=== PATIENT | female | born 1935 | race Caucasian/White ===

== ENCOUNTER 2019-10-07 14:16 | Emergency (ER) | payer MEDICARE, SELFPAY ==
[2019-10-07 14:17] VITALS: BP 149/72; PULSE 91; RESP 20; TEMP 36.6; O2SAT 98; BMI 27.7
--- NOTE | 2019-10-07 14:20 | ED.RN ---
WHEN TRIAGING PT. THIS RN ASKS IF SHE HAS THOUGHTS OF HARMING HERSELF. PT BURST INTO TEARS AND STATES YES.. TODAY I WANT TO KILL MYSELF. PT AGREES HAS HAD THESE THOUGHTS FOR AWHILE
--- NOTE | 2019-10-07 14:38 | ED.VIS.GEN ---
History of Present Illness Chief Complaint: Back Informant: Patient, Significant Other Onset: Weeks Context: Sudden Onset Timing: Continuous Quality: Pain Location: Low back right hip Current Severity: Severe Maximum Severity: Severe Worsened by: Any type of movement Relieved by: Nothing Associated Symptoms: The patient secondary to opiate analgesia Narrative: Patient is an 84-year-old woman with history of osteopenia who presents because of severe back pain. She had an outpatient MRI performed October 04 at the [facility]. Findings revealed multiple subacute benign compression fractures of T12-L3 and a remote benign compression fracture of T11. There is also severe L3-4 and L4-5 and moderate L2-L3 canal stenosis. There is also multilevel bony foraminal narrowing. Patient denies bowel or bladder dysfunction. Patient denies saddle paresthesia or anesthesia. Patient denies radicular pain. There is no recent fall. She denies fever or chills. She is not on an anticoagulant. Prior similar symptoms: Yes Recent Illness/Hospitalization: No - Past Medical History (1) Asthma Status: Chronic (2) GERD (gastroesophageal reflux disease) Status: Chronic Past Medical History - Allergies and Home Meds Allergies/Adverse Reactions: Allergies fentanyl Allergy (Verified 03/07/17 23:04) Shortness of breath Primary Care Physician: Blanco Fishman MD [Primary Care Provider] - Prior records reviewed: Yes Surgical History: noncontributory Lives: Spouse/ Significant Other Smoking Status: Never smoker Alcohol: None Drugs: None Review of Systems General: Denies: Chills, Fever, Malaise, Subjective, Sweats Cardiovascular: Denies: Chest pain, Palpitations Respiratory: Denies: Dyspnea, Cough, Dyspnea on exertion Gastrointestinal: Denies: Abdominal pain, Nausea, Vomiting, Diarrhea, Melena, Hematochezia Genitourinary: Denies: Dysuria, Hematuria, Frequency Musculoskeletal: Reports: Back pain. Denies: Myalgias, Arthralgias, Neck pain, Swelling, Extremity Pain, -, - Skin: Denies: Rash, Wounds Neurological: Denies: Headache, Weakness, Parasthesia, Numbness, -, - Endocrine: Denies: Polyuria, Polydipsia Hematologic: Denies: Easy bruising, Easy bleeding Allergy: Denies: Uticaria Physical Exam Vital Signs/Narrative: Vital Signs Temp Pulse Resp BP Pulse Ox 10/07/19 14:17 98 F 91 20 H 149/72 H 98 Inital Vital Signs reviewed: Yes General: Well nourished, Well developed, Obese, Acute Distress Head: Normocephalic, Atraumatic Eyes: Perrl, EOMI. Negative for: Pale conjunctiva, Scleral icterus ENT: Moist mucous membranes, No rhinorrhea Neck: Supple, Nontender, No lymphadenopathy, No JVD Cardiovascular: Regular rate, Regular rhythm, No murmurs, Normal S1, Normal S2 Respiratory: No distress, CTA bilaterally, Chest nontender Abdomen: Soft, Nontender, Nondistended, Normal bowel sounds, No masses. Negative for: Hepatomegaly, Splenomegaly, Mass, Pulsatile mass Rectal: Deferred Back: Normal Inspection. Negative for: Nontender, CVA tenderness Extremities: Nontender, No edema Skin: Normal color, No rash, No Trauma. Negative for: Cyanosis, Diaphoresis, Jaundice Neurological: Alert, Oriented x3, Cranial nerves II-XII grossly intact, Normal Strength, Normal Sensation Psychological: Normal affect Diagnostic/Tx/Re-eval Laboratory Results 10/07/19 10/07/19 15:50 15:50 WBC 9.0 RBC 4.35 Hgb 14.5 Hct 44.2 MCV 101.6 H MCH 33.3 H MCHC 32.8 RDW Std Deviation 50.6 H RDW Coeff of Mehrdad 13.4 Plt Count 244 MPV 9.3 Immature Gran % (Auto) 0.600 Neut % (Auto) 83.6 H Lymph % (Auto) 10.5 L Lyon % (Auto) 4.8 Eos % (Auto) 0.3 Baso % (Auto) 0.2 Absolute Neuts (auto) 7.6 Absolute Lymphs (auto) 0.95 Nucleated RBC % 0 Sodium 138 Potassium 3.7 Chloride 106 Carbon Dioxide 26.0 Anion Gap 6 BUN 11 Creatinine 0.70 Estim Creat Clear Calc 31.15 Est GFR (MDRD) Af Amer 104 Est GFR (MDRD) Non-Af 86 BUN/Creatinine Ratio 15.8 Glucose 115 H Calcium 9.7 CBC and basic metabolic panel unremarkable. - Medical Decision Making Since patient had MRI performed 3 days ago I would explain her back pain she was medicated with 0.5 mg of Dilaudid IV push. Because she reports nausea with opiates she received 4 mg of Zofran IV push. She has no acute neurologic findings. And was ordered a second dose of Dilaudid since she is in significant pain. If her pain is not controlled with second dose of Dilaudid will call hospitalist for admission for pain management due to multilevel compression fracture involving T12-L3 Patient was able to ambulate from her room to the restroom. Reviewing her medication reveals that she is on OxyContin every 4 hours for pain. Will discharge to home. ED Disposition - Plan for ED Patient: Diagnosis: Wedge compression fracture of t11-T12 vertebra, sequela, Compression fracture of L1 vertebra, Closed compression fracture of L2 vertebra, Compression fraction L3, Spinal stenosis of lumbar region at multiple levels Instructions: FRACTURE, Vertebral Compression Referrals: Blanco Fishman MD [Primary Care Provider] - 3-5 Days if not improving
[2019-10-07] MEDS: HYDROmorphone 1 MG/ML Syringe 0.5 MG IV (15:32)
[2019-10-07] MEDS: Ondansetron 4 MG/2 ML Vial IV (15:32)
[2019-10-07 15:58] LABS: Absolute Lymphocyte Count 0.95 X10^3/uL (0.83-4.51); Absolute Neutrophil Count 7.6 X10^3/uL (2.0-7.7); Basophil# 0.02 X10^3/uL; Basophil% 0.2 % (0-1); Eosinophil# 0.03 X10^3/uL; Eosinophils% 0.3 % (0-5); Hematocrit 44.2 % (37-47); Hemoglobin 14.5 g/dL (12.0-15.0); Lymphocyte # 0.95 X10^3/ul (4.0); Lymphocyte % 10.5 % (19-41); Mean Corp Hgb Conc 32.8 g/dL (32-36); Mean Corpuscular Hgb 33.3 pg (27.0-32.0); Mean Corpuscular Volume 101.6 fL (81-99); Mean Platelet Vol. 9.3 fl (6.2-12.0); Monocyte# 0.43 X10^3/uL; Monocyte% 4.8 % (0-10); NRBC Flagged by Analyzer 0 % (0-5); Neutrophil # 7.55 X10^3/uL (2.7-7.7); Neutrophil % 83.6 % (47-70); Platelet Count 244 K/mm3 (150-450); RBC Distribution Width CV 13.4 % (11.6-14.6); RBC Distribution Width SD 50.6 fl (35.1-43.9); Red Blood Count 4.35 M/mm3 (4.2-5.4)
--- NOTE | 2019-10-07 16:10 | CM.ED ---
Social Work Consult: Mental Health Informant: Meghan RN Spoke with Dr. Fields. Dr. Fields already spoke to patient and is stating that the patient is not suicidal and to believe that patient is wanting the pain to stop, but not to end life. Met with patient in room. Introduced self as well as social worker psychiatric role. Patient spouse present. Patient agreeable to patient spouse staying during conversation. Before this social worker psychiatric was able to broach any topics patient stating I am not suicidal. This social worker psychiatric acknowledging with patient that patient state yes when the nursing staff asked patient if patient was having any thoughts of harming self. Patient stating to be in lots of pain. Patient denies having any thoughts of wanting to end patient life or any plans of hurting self. Patient denies any history of suicidal thoughts or plans. Patient is laying in bed and grimacing often, and stating to currently be in pain. Patient with a pleasant affect and even smiled at this social worker psychiatric once. Patient spouse confirming to have no concerns with patient hurting self. Patient stating I have been in pain for a long time. Patient denies any mental health history or concerns. Active listening and support provided. Collaborating with Dr. Fields. 1:1 sitter precautions discharged at this time. Eduardo HOWARD, NICOLE
[2019-10-07 16:14] LABS: Anion Gap 6 (5-15); BUN 11 mg/dL (7-18); BUN/Creat Ratio 15.8 RATIO (10-20); Calcium,Total 9.7 mg/dL (8.5-10.1); Chloride 106 mmol/L (98-107); EST Glomerular Filtration Rate 86 mL/min (>60); Est Glom Filt Rate - Afr Amer 104 mL/min (>60); Estimated Creatinine Clearance 31.15 ml/min; Glucose 115 mg/dL (74-106); Potassium 3.7 mmol/L (3.5-5.1); Sodium Level 138 mmol/L (136-145)
[2019-10-07] MEDS: HYDROmorphone 0.5 MG/0.5 ML SYRINGE IV (16:57)
[2019-10-07 18:16] VITALS: BP 146/86; PULSE 79; RESP 16; TEMP 36.8; O2SAT 97
== END 2019-10-07 19:00 | disposition home or self-care (01) ==
LOC: ED 14:43
PROVIDERS: Emergency Provider Emergency Medicine; Family Provider Family Medicine; PCP Family Medicine
DX: M48.55XA Collapsed vertebra, not elsewhere classified, thoracolumbar region, initial encounter for fracture (principal); M48.061 Spinal stenosis, lumbar region without neurogenic claudication; M85.80 Other specified disorders of bone density and structure, unspecified site; J45.909 Unspecified asthma, uncomplicated; K21.9 Gastro-esophageal reflux disease without esophagitis
CPT/HCPCS: 80048; 85025; 96374; 96375; 96376; 99285; J7040; A4216; J2405

== ENCOUNTER 2019-10-09 16:49 | Emergency (ER) | payer MEDICARE, SELFPAY ==
[2019-10-09 16:49] VITALS: BP 146/82; PULSE 90; RESP 16; TEMP 36.6; O2SAT 95; BMI 28.8
--- NOTE | 2019-10-09 17:08 | ED.VIS.GEN ---
History of Present Illness Chief Complaint: Constipation Informant: Patient, Family Onset: Days Current Severity: Mild Maximum Severity: Moderate Narrative: Patient presents secondary to concerns for constipation. She was found to have subacute compression fractures of T12-L3 on an MRI scan performed October 04. She was started on hydrocodone on October 03. Patient tells me her last bowel movement was approximately 10 days ago. She is passing gas. She has tried stool softeners, milk of magnesia, enema, and magnesium citrate at home without improvement. Her PCP told her that it is to come to the emergency room. Prior abdominal surgeries include appendectomy and cholecystectomy. - Past Medical History (1) Hx of appendectomy Status: Chronic (2) Hx of cholecystectomy Status: Chronic (3) Compression fracture Status: Chronic (4) Asthma Status: Chronic (5) GERD (gastroesophageal reflux disease) Status: Chronic Past Medical History - Allergies and Home Meds Allergies/Adverse Reactions: Allergies fentanyl Allergy (Verified 10/09/19 16:51) Shortness of breath Primary Care Physician: Blanco Fishman MD [Primary Care Provider] - Prior records reviewed: Yes Surgical History: noncontributory Lives: Spouse/ Significant Other Smoking Status: Never smoker Review of Systems General: Denies: Chills, Fever Eyes: Denies: Visual changes - bilaterally ENT: Denies: Bilateral ear pain Cardiovascular: Denies: Chest pain Respiratory: Denies: Dyspnea, Cough Gastrointestinal: Reports: Abdominal pain, Constipation. Denies: Nausea, Vomiting, Diarrhea Genitourinary: Denies: Dysuria Skin: Denies: Rash Allergy: Denies: Uticaria Physical Exam Vital Signs/Narrative: Vital Signs Temp Pulse Resp BP Pulse Ox 10/09/19 16:49 98 F 90 16 146/82 H 95 Inital Vital Signs reviewed: Yes General: Well nourished, Well developed Head: Normocephalic ENT: Moist mucous membranes Neck: Supple Cardiovascular: Regular rate, Regular rhythm Respiratory: No distress, CTA bilaterally Abdomen: Soft, Nontender, Normal bowel sounds Extremities: Nontender Skin: Normal color Neurological: Alert, Oriented x3 Psychological: Normal affect Diagnostic/Tx/Re-eval Impressions KUB X-Ray 10/09/19 17:20 IMPRESSION: Heterogeneous opacity at the left costophrenic angle may be better assessed with a dedicated chest x-ray. Nonobstructive bowel gas pattern. Prominent stool burden. Electronically Signed: Eleuterio Cooper, at 19:03 EST Tel , Service support , 10/09/19 17:20 Abdomen Single View [RAD] Stat - Medical Decision Making Soapsuds enema was attempted at bedside. Patient reports very minimal to no results. She will be given a bottle of GoLYTELY that she can start tomorrow. I encouraged her to mix it per instructions and then drink a glass every 1/2 hour or so. She is to wait after 4 or 5 glasses to see if she gets results. At this time her bowel pattern is nonobstructive and she is passing gas. ED Disposition - Plan for ED Patient: Disposition: Home or Assisted Living Diagnosis: Constipation Instructions: CONSTIPATION (Adult) Referrals: Blanco Fishman MD [Primary Care Provider] - Andrade Lauren MD [NON-STAFF] - As Needed
--- NOTE | 2019-10-09 17:20 | RAD_ITS ---
STUDY: X-RAY - ABDOMEN/PELVIS REASON FOR EXAM: Female, 84 years old. Abdominal pain. TECHNIQUE: 2 views of the abdomen COMPARISON: None. FINDINGS: Heterogeneous opacity at the left costophrenic angle. There is an unremarkable bowel gas pattern. There is no demonstrated free abdominal air. Moderate stool burden. Normal soft tissue structures. Normal visualized osseous structures. RAD/Abdomen Single View IMPRESSION: Heterogeneous opacity at the left costophrenic angle may be better assessed with a dedicated chest x-ray. Nonobstructive bowel gas pattern. Prominent stool burden. Electronically Signed: Eleuterio Cooper, at 19:03 EST Tel , Service support ,
[2019-10-09] MEDS: Electrolyte Solution/Peg's 4000 ML PO (20:46)
== END 2019-10-09 20:47 | disposition home or self-care (01) ==
PROVIDERS: Emergency Provider Emergency Medicine; Family Provider Family Medicine; PCP Family Medicine
DX: K59.00 Constipation, unspecified (principal); J45.909 Unspecified asthma, uncomplicated; K21.9 Gastro-esophageal reflux disease without esophagitis
CPT/HCPCS: 74018; 99284

== ENCOUNTER → 2019-11-26 08:50 | Outpatient (CLI) | payer MEDICARE, SELFPAY ==
[2019-11-26 08:38] VITALS: BMI 28.8
--- NOTE | 2019-11-26 08:51 | RAD_ITS ---
STUDY: X-RAY - LUMBAR SPINE REASON FOR EXAM: Female, 84 years old. PAIN TECHNIQUE: 4 view(s) of the lumbar spine were obtained. COMPARISON: None FINDINGS: Normal lumbar lordosis. There is no substantial scoliosis. 8 mm of anterolisthesis of L4 on L5. This is unchanged on the neutral, flexion, and extension views. Mild loss of height of the T12-L4 vertebral bodies consistent with mild compression fractures. These may be acute, subacute, or chronic and clinical correlation and correlation MRI may be useful. There is multi-level degenerative disc disease with multi-level disc space narrowing. The soft tissue structures are unremarkable. RAD/L/S Spine Min 4 Views IMPRESSION: 1. Compression fractures of T12-L4 which may be acute, subacute, or chronic and clinical correlation and correlation MRI may be useful. 2. Diffuse degenerative disc disease with 8 mm of anterolisthesis of L4 on L5. This is unchanged on the neutral, flexion, and extension views. Electronically Signed: Kody Mcdonald MD at 12:47 EST Tel , Service support ,
== END ==
PROVIDERS: PCP Family Medicine; Referring Provider Orthopaedic Surgery; Visit Provider Orthopaedic Surgery
DX: M54.5 Low back pain (principal)
CPT/HCPCS: 72110

== ENCOUNTER → 2019-12-12 12:56 | Outpatient (CLI) | payer MEDICARE, SELFPAY ==
[2019-12-05 09:14] VITALS: BMI 28.8
--- NOTE | 2019-12-12 13:00 | BD_ITS ---
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 COMPARISON: None. FINDINGS: Right Forearm: g/cm2 (0.426) / T-score (-5.2) / Z-score (-2.2) Left Forearm: g/cm2 (0.431) / T-score (-5.1) / Z-score (-2.2) BD/Dexa Bone Density/Append Skel IMPRESSION: The patient is considered osteoporotic as outlined below according to World Justo Organization (WHO) criteria with a high fracture risk. Reference Information: The T-score is the number of standard deviations above or below the standard which is normal for young adults at their peak bone mineral density. The World Health Organization (WHO) interprets the T-scores as follows: Above -1 Normal bone density Between -1 and -2.5 Osteopenia Equal to / or below -2.5 Osteoporosis As a practical clinical guideline, osteopenia may be graded as follows: Mild -1 through -1.5 Moderate -1.6 through -2.0 Severe -2.1 through -2.4 The Z-score is the number of standard deviations above or below age-matched controls. A Z-score of less than -1.5 would be considered abnormal. References: 1. NIH Osteoporosis and Related Bone Diseases http://www.osteo.org 2. International Society for Clinical Densitometry http://www.iscd.org 3. National Osteoporosis Foundation http://www.nof.org Electronically Signed: Daniel Fry, at 8:32 EDT , Service support ,
== END ==
PROVIDERS: PCP Family Medicine; Referring Provider Internal Medicine Endocrinology, Diabetes & Metabolism; Visit Provider Internal Medicine Endocrinology, Diabetes & Metabolism
DX: M81.0 Age-related osteoporosis without current pathological fracture (principal)
CPT/HCPCS: 77081

== ENCOUNTER → 2020-02-13 14:47 | Outpatient (CLI) | payer MEDICARE, SELFPAY ==
[2019-12-05 09:14] VITALS: BMI 28.8
[2020-02-13 15:00] VITALS: BP 117/56; PULSE 68; RESP 16; TEMP 36.4; O2SAT 96; BMI 28.8
[2020-02-13] MEDS: DENOSUMAB 60 MG/ML ML SQ (15:06)
== END ==
PROVIDERS: PCP Family Medicine; Referring Provider Internal Medicine Endocrinology, Diabetes & Metabolism; Visit Provider Internal Medicine Endocrinology, Diabetes & Metabolism
DX: M81.0 Age-related osteoporosis without current pathological fracture (principal)
CPT/HCPCS: 96372; J0897

== ENCOUNTER 2020-04-14 01:09 | Emergency (ER) | payer MEDICARE, SELFPAY ==
[2020-02-13 15:00] VITALS: BMI 28.8
[2020-04-14 01:11] VITALS: BP 169/77; PULSE 77; RESP 18; TEMP 37.2; O2SAT 96; BMI 27.7
--- NOTE | 2020-04-14 01:17 | ED.VIS.GEN ---
History of Present Illness Chief Complaint: Edema Informant: Patient Onset: Days Context: Gradual Onset Timing: Continuous Current Severity: Mild Maximum Severity: Mild Narrative: The patient is an 85-year-old female with medical history significant for asthma and hypertension that presents to the emergency department with atraumatic right lower extremity redness and swelling. Patient states is been going on for the past 5 days. She states she is try to elevate the foot but the swelling is remained persistent. She states it is mildly tender. She denies any pain in the calf. She denies any chest pain or shortness of breath. The patient states she did have something like this remotely and was checked for DVT which was negative. She called her insurance hotline and was referred to the emergency department tonight. She denies any history of coagulopathy. She does admit to decreased gait because of prior lumbar fracture. She states she is otherwise been in her normal state of health. She is had no fever or chills. She denies any trauma. Prior similar symptoms: No Recent Illness/Hospitalization: No Past Medical History - Allergies and Home Meds Allergies/Adverse Reactions: Allergies fentanyl Allergy (Verified 04/14/20 01:15) Shortness of breath Primary Care Physician: Blanoc Fishman MD [Primary Care Provider] - Prior records reviewed: Yes Past Medical History: - - Hypertension, hyperlipidemia, asthma Surgical History: noncontributory Smoking Status: Never smoker Review of Systems General: Denies: Chills, Fever, Sweats Eyes: Denies: Visual changes - bilaterally, Diplopia ENT: Denies: Rhinorrhea, Sore throat Cardiovascular: Denies: Chest pain, Palpitations Respiratory: Denies: Dyspnea, Cough, Dyspnea on exertion Gastrointestinal: Denies: Abdominal pain, Nausea, Vomiting, Diarrhea, Melena, Hematochezia Genitourinary: Denies: Dysuria, Hematuria, Frequency Musculoskeletal: Reports: Swelling. Denies: Back pain, Extremity Pain Skin: Denies: Rash, Wounds Neurological: Denies: Headache, Weakness, Numbness Physical Exam Vital Signs/Narrative: Vital Signs Temp Pulse Resp BP Pulse Ox 04/14/20 01:11 98.9 F 77 18 169/77 H 96 Inital Vital Signs reviewed: Yes General: Well nourished, Well developed, No Acute Distress Head: Normocephalic, Atraumatic Eyes: Perrl, EOMI ENT: Moist mucous membranes, No rhinorrhea Neck: Supple, Nontender Cardiovascular: Regular rate, Regular rhythm, No murmurs Respiratory: No distress, CTA bilaterally, Chest nontender Abdomen: Soft, Nontender, Nondistended, Normal bowel sounds Back: Nontender, Normal Inspection Extremities: Tenderness, Edema - Patient has 1+ edema of the right lower extremity. The pulses are normal. The foot has some mild erythema without streaking. There is no pain in the calf. There is no swelling of the upper part of the leg. Skin: Normal color, No rash Neurological: Alert, Oriented x3, Cranial nerves II-XII grossly intact, Normal Strength, Normal Sensation Psychological: Normal affect, Normal Mood Diagnostic/Tx/Re-eval - Medical Decision Making The patient presents with atraumatic swelling of the right lower extremity. There is some erythema and it is warm. Her pulses however are normal. Unfortunately, at this time we do not have formal ultrasound. I did bedside ultrasound of the area. It does appear as if the veins are compressible. However, I am going to bring the patient back in the morning for formal outpatient ultrasound. Given her advanced age, gait dysfunction, I do feel that starting anticoagulation without formal ultrasound could be detrimental to the patient. She is in agreement with this plan. I am going to cover her for Keflex for the skin changes as I do feel that this is likely a mild cellulitis. The patient is comfortable with this plan of care. Impression 1. Right lower extremity edema 2. Cellulitis of right lower extremity ED Disposition - Plan for ED Patient: Instructions: ED Peripheral Edema, Unilateral Prescriptions: Cephalexin [Keflex] 500 mg PO Q8 #30 cap Prescription Printed Referrals: Blanco Fishman MD [Primary Care Provider] -
[2020-04-14 01:41] VITALS: PULSE 77; RESP 18; O2SAT 96
[2020-04-14] MEDS: Cephalexin 250 MG Capsule 500 MG PO (01:45)
== END 2020-04-14 01:56 | disposition home or self-care (01) ==
LOC: ED 01:50
PROVIDERS: Emergency Provider Emergency Medicine; PCP Family Medicine
DX: L03.115 Cellulitis of right lower limb (principal); I10 Essential (primary) hypertension; E78.5 Hyperlipidemia, unspecified; J45.909 Unspecified asthma, uncomplicated; Z79.899 Other long term (current) drug therapy

== ENCOUNTER → 2020-04-14 10:23 | Outpatient (CLI) | payer MEDICARE, SELFPAY ==
[2020-04-14 01:11] VITALS: BMI 27.7
--- NOTE | 2020-04-14 10:23 | VDLE_ITS ---
Reason For Study: Swelling RIGHT LEFT GSV is normal. CFV is compressible, spontaneous, phasic, Acute deep veinn thrombosis is noted in the competent, and demonstrates normal right CFV, FV, PopV, T/P Trunk, PTV, PeroV, augmentation. SoleusV and GastrocV. CFV is partially compressible with minimal flow noted. Procedure Exam performed in department. A preliminary report was called and/or faxed to ED. Pt seen in ED 04/14/2020 in early AM. Interpretation Summary Acute deep venous thrombosis right common femoral, femoral, popliteal, tibioperoneal trunk, posterior tibial, peroneal, soleus, and gastrocnemius veins. As noted minimal flow present within the right common femoral vein Patent and compressible left common femoral vein Ordering Physician: Cortes Tapia Referring Physician: MD Sravanthi Blanco Performed By: Anjelica Medina RVT and Student
== END ==
PROVIDERS: PCP Family Medicine; Referring Provider Emergency Medicine; Visit Provider Emergency Medicine
DX: R60.0 Localized edema (principal)
CPT/HCPCS: 93971

== ENCOUNTER 2020-04-14 11:06 | Emergency (ER) | payer MEDICARE, SELFPAY ==
[2020-04-14 01:11] VITALS: BMI 27.7
[2020-04-14 11:07] VITALS: BP 137/67; PULSE 76; RESP 16; TEMP 36.2; BMI 29.2
--- NOTE | 2020-04-14 12:01 | ED.VIS.GEN ---
History of Present Illness Chief Complaint: Lower Extremity Injury Informant: Patient Narrative: Patient is a 85-year-old female who presents to the emergency department after having a positive ultrasound of her right lower extremity for DVT. She states that she has had pain and swelling of the leg over the past week. She states that she has been sitting in a chair for long periods of time as she has osteoarthritis and had some fractures in her back. She is not on any anticoagulation. She denies any history of DVT or PE. She has not had any chest pain or shortness of breath. She denies any fevers or chills. No abdominal pain. No loss of sensation in the leg. No recent surgeries, long car rides or plane rides. No known bleeding disorders. Past Medical History - Allergies and Home Meds Allergies/Adverse Reactions: Allergies fentanyl Allergy (Verified 04/14/20 11:10) Shortness of breath Primary Care Physician: Blanco Fishman MD [Primary Care Provider] - 1 Day Prior records reviewed: Yes Past Medical History: - - Compression fractures, asthma, GERD Surgical History: noncontributory Smoking Status: Never smoker Review of Systems All systems negative except as indicated General: Denies: Chills, Fever, Sweats Eyes: Denies: Visual changes - bilaterally, Diplopia ENT: Denies: Rhinorrhea, Sore throat Cardiovascular: Denies: Chest pain, Palpitations Respiratory: Denies: Dyspnea, Cough, Dyspnea on exertion Gastrointestinal: Denies: Abdominal pain, Nausea, Vomiting, Diarrhea, Melena, Hematochezia Genitourinary: Denies: Dysuria, Hematuria, Frequency Musculoskeletal: Reports: Extremity Pain. Denies: Back pain Skin: Denies: Rash, Wounds Neurological: Denies: Headache, Weakness, Numbness Physical Exam Vital Signs/Narrative: Vital Signs Temp Pulse Resp BP 04/14/20 11:07 97.2 F L 76 16 137/67 H Inital Vital Signs reviewed: Yes General: Well nourished, Well developed, No Acute Distress Head: Normocephalic, Atraumatic Eyes: Perrl, EOMI ENT: Moist mucous membranes, No rhinorrhea Neck: Supple, Nontender Cardiovascular: Regular rate, Regular rhythm, No murmurs Respiratory: No distress, CTA bilaterally, Chest nontender Abdomen: Soft, Nontender, Nondistended, Normal bowel sounds Back: Nontender, Normal Inspection Extremities: Nontender, No edema, Edema - 1+ pitting edema on the right. 2+ DP pulse present. Sensation intact. Does have full range of motion. It is tender to palpation. Mild erythema over the lower extremity. No significant warmth present., Calf Tenderness - Right calf Skin: Normal color, No rash Neurological: Alert, Oriented x3, Cranial nerves II-XII grossly intact, Normal Strength, Normal Sensation Psychological: Normal affect, Normal Mood Diagnostic/Tx/Re-eval - Medical Decision Making Patient presents to the emergency department after having a positive ultrasound. She had a acute deep vein thrombosis in the right CFV, FV, pop V, T/P trunk, PT V, para V, soleus V and gastroc V. CFV is partially compressible with minimal flow. Left side did not show any evidence of DVT. We do not have the on-call vascular surgeon so I spoke to the [facility] vascular surgeon. Described patient's symptoms and ultrasound findings. They did not think she would be a candidate for clot retrieval. They did recommend that she be started on anticoagulation if she does not have any significant bleeding risk factors. They state that bring her inpatient for heparin versus oral anticoagulation at home would not make any difference. I discussed the risks associated with blood thinners including life-threatening bleeding with the patient. The was also present for this. They do agree to starting anticoagulation now. We will give first dose of Eliquis here in the emergency department. We will give a starter pack. I did call the patient's PCP and they are going to follow-up with the patient. Warning signs and symptoms for which to return to the emerge department including worsening swelling of the leg or develop any chest pain/shortness of breath were reviewed with her. She understands and is agreeable with this plan. ED Disposition - Plan for ED Patient: Disposition: Home or Assisted Living Diagnosis: Right leg DVT Instructions: ED DVT Prescriptions: Apixaban [Eliquis] 5 mg PO BID #74 tab Prescription Printed Referrals: Blanco Fishman MD [Primary Care Provider] - 1 Day
--- NOTE | 2020-04-14 12:20 | NURSING ---
[id number] AMAYA, DR MENDOZA [employer]ATE
--- NOTE | 2020-04-14 12:20 | NURSING ---
CALLED [facility] FOR VASCULAR SURGEON FAXED FACESHEET
[2020-04-14 13:13] LABS: Absolute Lymphocyte Count 1.21 X10^3/uL (0.83-4.51); Absolute Neutrophil Count 4.2 X10^3/uL (2.0-7.7); Basophil# 0.06 X10^3/uL; Basophil% 0.9 % (0-1); Eosinophil# 0.23 X10^3/uL; Eosinophils% 3.5 % (0-5); Hematocrit 40.4 % (37-47); Hemoglobin 13.3 g/dL (12.0-15.0); Lymphocyte # 1.21 X10^3/ul (4.0); Lymphocyte % 18.3 % (19-41); Mean Corp Hgb Conc 32.9 g/dL (32-36); Mean Corpuscular Hgb 33.6 pg (27.0-32.0); Mean Platelet Vol. 8.9 fl (6.2-12.0); Monocyte# 0.91 X10^3/uL; Monocyte% 13.8 % (0-10); NRBC Flagged by Analyzer 0 % (0-5); Neutrophil # 4.17 X10^3/uL (2.7-7.7); Neutrophil % 63.2 % (47-70); Platelet Count 217 K/mm3 (150-450); RBC Distribution Width SD 51.9 fl (35.1-43.9); Red Blood Count 3.96 M/mm3 (4.2-5.4); White Blood Count 6.6 K/mm3 (4.4-11.0)
[2020-04-14 13:29] LABS: Anion Gap 4 (5-15); BUN 13 mg/dL (7-18); BUN/Creat Ratio 25.4 RATIO (10-20); Calcium,Total 9.1 mg/dL (8.5-10.1); Chloride 106 mmol/L (98-107); Creatinine, Serum 0.51 mg/dL (0.55-1.02); EST Glomerular Filtration Rate 122 mL/min (>60); Est Glom Filt Rate - Afr Amer 147 mL/min (>60); Estimated Creatinine Clearance 44.11 ml/min; Glucose 75 mg/dL (74-106); Potassium 3.9 mmol/L (3.5-5.1); Sodium Level 139 mmol/L (136-145)
--- NOTE | 2020-04-14 13:57 | NURSING ---
CALLED DR EDWARDS OFFICE. HE IS OUT ALL WEEK. DR MENDOZA CALLED BACK
[2020-04-14] MEDS: APIXABAN 5 MG TABLET 10 MG PO (14:50)
== END 2020-04-14 14:51 | disposition home or self-care (01) ==
PROVIDERS: Emergency Provider Emergency Medicine; PCP Family Medicine
DX: I82.411 Acute embolism and thrombosis of right femoral vein (principal); I82.431 Acute embolism and thrombosis of right popliteal vein; I82.441 Acute embolism and thrombosis of right tibial vein; I82.461 Acute embolism and thrombosis of right calf muscular vein; I82.491 Acute embolism and thrombosis of other specified deep vein of right lower extremity; K21.9 Gastro-esophageal reflux disease without esophagitis; L03.115 Cellulitis of right lower limb; I10 Essential (primary) hypertension; E78.5 Hyperlipidemia, unspecified; J45.909 Unspecified asthma, uncomplicated; Z79.899 Other long term (current) drug therapy
CPT/HCPCS: 36415; 80048; 85025; 93971; 99283

== ENCOUNTER 2020-05-11 14:06 | Emergency (ER) | payer MEDICARE, SELFPAY ==
[2020-05-11 14:07] VITALS: BP 130/63; PULSE 77; RESP 18; TEMP 36.3; O2SAT 97; BMI 29.2
[2020-05-11 16:06] VITALS: BP 160/60; PULSE 71; RESP 18; O2SAT 98
--- NOTE | 2020-05-11 16:06 | ED.VIS.GEN ---
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 She recently completed a course of Keflex for a suspected cellulitis on top of the DVT. The Keflex made no difference. He denies any fevers or chills. No chest pain, shortness of breath. She states she has been compliant with all of her medications. She was just concerned that the cellulitis is not improving at this point. There has been no drainage from the area. She feels like the swelling and some parts of the leg are improving while others seem to be getting worse. Nothing has gone past the knee. She does have a history of psoriasis. No other rashes elsewhere noted. No known aggravating or relieving factors. Past Medical History - Allergies and Home Meds Allergies/Adverse Reactions: Allergies fentanyl Allergy (Verified 05/11/20 14:11) Shortness of breath Primary Care Physician: Blanco Fishman MD [Primary Care Provider] - 2 Days Prior records reviewed: Yes Past Medical History: - - DVT, asthma, GERD Surgical History: noncontributory Smoking Status: Never smoker Review of Systems General: Denies: Chills, Fever, Sweats Eyes: Denies: Visual changes - bilaterally, Diplopia ENT: Denies: Rhinorrhea, Sore throat Cardiovascular: Denies: Chest pain, Palpitations Respiratory: Denies: Dyspnea, Cough, Dyspnea on exertion Gastrointestinal: Denies: Abdominal pain, Nausea, Vomiting, Diarrhea, Melena, Hematochezia Genitourinary: Denies: Dysuria, Hematuria, Frequency Musculoskeletal: Reports: Swelling, Extremity Pain. Denies: Back pain Skin: Reports: Rash. Denies: Wounds Neurological: Denies: Headache, Weakness, Numbness Physical Exam Vital Signs/Narrative: Vital Signs Temp Pulse Resp BP Pulse Ox 05/11/20 14:07 97.3 F L 77 18 130/63 H 97 General: Well nourished, Well developed, No Acute Distress Head: Normocephalic, Atraumatic Eyes: Perrl, EOMI ENT: Moist mucous membranes, No rhinorrhea Neck: Supple, Nontender Cardiovascular: Regular rate, Regular rhythm, No murmurs Respiratory: No distress, CTA bilaterally, Chest nontender Abdomen: Soft, Nontender, Nondistended, Normal bowel sounds Back: Nontender, Normal Inspection Extremities: Tenderness, Edema, Calf Tenderness Skin: Normal color, - - There is erythema, warmth and tenderness around the right calf. No open lesions present. Neurovascular intact. Neurological: Alert, Oriented x3, Cranial nerves II-XII grossly intact, Normal Strength, Normal Sensation Psychological: Normal affect, Normal Mood Diagnostic/Tx/Re-eval - Medical Decision Making Patient presents to the emergency department for right leg erythema, warmth and pain. She was already treated for cellulitis but has a known DVT of that leg. Upon arrival to the emergency department vital signs within normal limits and she is afebrile. Basic lab work obtained which did not reveal a significantly elevated white blood cell count. She was already on a course of Keflex. We will write a prescription for doxycycline. I believe a lot of this can be related to inflammatory changes due to her DVT. Discussed waiting and seeing with the antibiotic. If she has any worsening of the swelling or redness she is to start the antibiotic. She develops any significant systemic symptoms including any fevers or chills she is to return to the emergency department. She otherwise is to follow-up with her PCP. She states she has an appointment with her doctor in 2 days. She is to keep this appointment for wound recheck. At this time will discharge home in stable condition. She understands and is agreeable with this plan. ED Disposition - Plan for ED Patient: Disposition: Home or Assisted Living Diagnosis: DVT, lower extremity, Leg swelling Instructions: ED DVT Prescriptions: Doxycycline 100 mg PO BID 7 Days #14 cap Prescription Printed Referrals: Blanco Fishman MD [Primary Care Provider] - 2 Days
[2020-05-11 16:11] VITALS: BP 160/60; PULSE 71; RESP 18; TEMP 36.3; O2SAT 98
[2020-05-11 16:20] LABS: Absolute Lymphocyte Count 1.33 X10^3/uL (0.83-4.51); Absolute Neutrophil Count 4.2 X10^3/uL (2.0-7.7); Basophil# 0.05 X10^3/uL; Basophil% 0.8 % (0-1); Eosinophil# 0.23 X10^3/uL; Eosinophils% 3.5 % (0-5); Hematocrit 42.5 % (37-47); Lymphocyte # 1.33 X10^3/ul (4.0); Lymphocyte % 20.1 % (19-41); Mean Corp Hgb Conc 32.9 g/dL (32-36); Mean Corpuscular Hgb 33.6 pg (27.0-32.0); Mean Corpuscular Volume 101.9 fL (81-99); Mean Platelet Vol. 8.9 fl (6.2-12.0); Monocyte% 12.1 % (0-10); NRBC Flagged by Analyzer 0 % (0-5); Neutrophil # 4.18 X10^3/uL (2.7-7.7); Neutrophil % 63.2 % (47-70); Platelet Count 339 K/mm3 (150-450); RBC Distribution Width CV 14.3 % (11.6-14.6); Red Blood Count 4.17 M/mm3 (4.2-5.4); White Blood Count 6.6 K/mm3 (4.4-11.0)
[2020-05-11 16:36] LABS: Anion Gap 4 (5-15); BUN 13 mg/dL (7-18); BUN/Creat Ratio 12.5 RATIO (10-20); Calcium,Total 9.4 mg/dL (8.5-10.1); Chloride 106 mmol/L (98-107); Creatinine, Serum 1.04 mg/dL (0.55-1.02); EST Glomerular Filtration Rate 54 mL/min (>60); Est Glom Filt Rate - Afr Amer 65 mL/min (>60); Estimated Creatinine Clearance 42.56 ml/min; Glucose 98 mg/dL (74-106); Potassium 4.2 mmol/L (3.5-5.1); Sodium Level 140 mmol/L (136-145)
== END 2020-05-11 16:56 | disposition home or self-care (01) ==
PROVIDERS: Emergency Provider Emergency Medicine; PCP Family Medicine
DX: I82.401 Acute embolism and thrombosis of unspecified deep veins of right lower extremity (principal); J45.909 Unspecified asthma, uncomplicated; K21.9 Gastro-esophageal reflux disease without esophagitis; Z79.01 Long term (current) use of anticoagulants; Z79.899 Other long term (current) drug therapy
CPT/HCPCS: 80048; 85025; 99283; A4216

== ENCOUNTER → 2020-08-13 14:57 | Outpatient (CLI) | payer MEDICARE, SELFPAY ==
[2019-12-05 09:14] VITALS: BMI 28.8
[2020-08-13 15:16] VITALS: BP 125/70; PULSE 81; RESP 16; TEMP 36.4; O2SAT 94; BMI 29.2
[2020-08-13] MEDS: DENOSUMAB 60 MG/ML SQ (15:24)
== END ==
PROVIDERS: PCP Family Medicine; Referring Provider Internal Medicine Endocrinology, Diabetes & Metabolism; Visit Provider Internal Medicine Endocrinology, Diabetes & Metabolism
DX: M81.0 Age-related osteoporosis without current pathological fracture (principal)
CPT/HCPCS: 96372; J0897

== ENCOUNTER → 2020-10-14 08:19 | Outpatient (CLI) | payer MEDICARE, SELFPAY ==
[2020-08-13 15:16] VITALS: BMI 29.2
[2020-10-14 09:25] LABS: Absolute Lymphocyte Count 1.24 X10^3/uL (0.83-4.51); Absolute Neutrophil Count 2.6 X10^3/uL (2.0-7.7); Basophil# 0.07 X10^3/uL; Basophil% 1.5 % (0-1); Eosinophils% 4.2 % (0-5); Hematocrit 41.1 % (37-47); Hemoglobin 13.4 g/dL (12.0-15.0); Lymphocyte # 1.24 X10^3/ul (4.0); Lymphocyte % 26.2 % (19-41); Mean Corp Hgb Conc 32.6 g/dL (32-36); Mean Corpuscular Hgb 33.3 pg (27.0-32.0); Mean Platelet Vol. 9.8 fl (6.2-12.0); Monocyte# 0.58 X10^3/uL; Monocyte% 12.2 % (0-10); NRBC Flagged by Analyzer 0 % (0-5); Neutrophil # 2.64 X10^3/uL (2.7-7.7); Neutrophil % 55.7 % (47-70); Platelet Count 318 K/mm3 (150-450); RBC Distribution Width CV 13.7 % (11.6-14.6); RBC Distribution Width SD 51.7 fl (35.1-43.9); Red Blood Count 4.03 M/mm3 (4.2-5.4); White Blood Count 4.7 K/mm3 (4.4-11.0)
[2020-10-14 10:03] LABS: AST(SGOT) 45 U/L (15-37); Alanine Aminotransfer ALT/SGPT 66 U/L (13-56); Albumin, Serum 3.3 g/dL (3.2-5.0); Alkaline Phosphatase 95 U/L (45-117); Anion Gap 4 (5-15); BUN 11 mg/dL (7-18); BUN/Creat Ratio 19.9 RATIO (10-20); Bilirubin, Direct 0.18 mg/dL (0.00-0.30); Calcium,Total 8.8 mg/dL (8.5-10.1); Chloride 108 mmol/L (98-107); Cholesterol 172 mg/dL (200); Creatinine, Serum 0.55 mg/dL (0.55-1.02); EST Glomerular Filtration Rate 112 mL/min (>60); Est Glom Filt Rate - Afr Amer 135 mL/min (>60); Globulin 3.9 g/dL (2.2-4.2); Glucose 86 mg/dL (74-106); High Density Lipoprotein 90 mg/dL; Protein, Total 7.2 g/dL (6.4-8.2); Sodium Level 141 mmol/L (136-145); Triglycerides 45 mg/dL; Very Low Density Lipoprotein 9 mg/dL (5-40)
[2020-10-14 10:46] LABS: Hepatitis B Surface Antibody Non-Reactive; Hepatitis B Surface Antigen Non-Reactive (Nonreactive); Hepatitis C Antibody Non-Reactive (Nonreactive)
[2020-10-17 06:08] LABS: QNTFERON TB Mitogen Value > 10.00 IU/mL (.); QNTFERON TB Nil Value 0.05 IU/mL (.); QNTFERON TB1+ Ag Value 0.06 IU/mL (.); QNTFERON TB2+ Ag Value 0.06 IU/mL (.)
[2020-10-17 07:58] LABS: Hepatitis B Core Ab Total Negative (Negative); QNTIFERON TB Positive Criteria Negative (Negative)
== END ==
PROVIDERS: PCP Family Medicine
DX: L40.0 Psoriasis vulgaris (principal); Z79.899 Other long term (current) drug therapy
CPT/HCPCS: 36415; 80048; 80061; 80076; 85025; 86480; 86704; 86706; 86803; 87340

== ENCOUNTER 2020-10-23 09:00 | Outpatient (RCR) | payer MEDICARE, SELFPAY ==
[2020-08-13 15:16] VITALS: BMI 29.2
== END 2020-10-23 23:59 ==
LOC: IMMUN 09:00
PROVIDERS: PCP Family Medicine; Visit Provider Family Medicine
DX: Z23 Encounter for immunization (principal)
CPT/HCPCS: 0011A; 0012A

== ENCOUNTER 2021-01-25 00:28 | Emergency (ER) | payer MEDICARE, SELFPAY ==
[2020-08-13 15:16] VITALS: BMI 29.2
[2021-01-25 00:30] VITALS: BP 187/65; PULSE 48; RESP 16; TEMP 36.6; O2SAT 97
--- NOTE | 2021-01-25 00:48 | CT_ITS ---
STUDY: CT ABDOMEN AND PELVIS WITHOUT CONTRAST REASON FOR EXAM: Female, 85 years old. SHARP right-sided abdominal pain with hematuria, history of cirrhosis and appendectomy RADIATION DOSAGE (If Supplied By Facility): CTDIvol = ( 14.07 ) mGy, DLP = ( 622.01 ) mGycm TECHNIQUE: Transaxial images were obtained from the dome of the diaphragm to the symphysis pubis without oral contrast, and without intravenous contrast. Sagittal and coronal images were reconstructed. Individualized dose optimization techniques were used for this CT. COMPARISON: None. FINDINGS: The study is limited due to lack of intravenous contrast. Mild bibasilar dependent atelectasis. Focal calcification in the left lobe of the liver. No organomegaly. Unremarkable spleen, pancreas, and left kidney on this unenhanced study. A 0.3 x 0.4 cm stone in the proximal to mid right ureter (at the level of right transverse process of L4) causing mild right-sided hydroureteronephrosis. No additional radiopaque urolithiasis on either side. A 5.2 cm parapelvic cyst in the right kidney. Thickened/hyperplastic adrenals, unchanged. Gallbladder not seen. Status post appendectomy. Large amount of retained stool in the colon with no evidence of bowel obstruction. Vascular calcification with no abdominal aortic aneurysm. No free air or free fluid. No definite adenopathy. Tiny fat-containing umbilical hernia. Sections through the pelvis demonstrate no adnexal mass. There is no radiopaque stone in the urinary bladder. Multilevel thoracolumbar spondylosis. Old compression fractures of T10-L5. 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 Diffuse osteopenia. CT/Abdomen/Pelvis without Cont IMPRESSION: A 0.4 cm stone in the proximal to mid right ureter causing mild upstream hydroureteronephrosis. No additional radiopaque urolithiasis on either side. Large amount of retained stool throughout the colon with no evidence of bowel obstruction. Electronically Signed: Florentin Farmer MD at 1:52 EDT Tel , Service support ,
--- NOTE | 2021-01-25 00:51 | ED.VISSUMM ---
- ER Visit Summary Date of Service: 01/25/21 Chief Complaint: Right flank pain History of Present Illness: The patient is a 85 F history of DVT in her right leg on Eliquis also prior kidney stone. Patient's had a cholecystectomy. States that for the last 1 to 2 days she has had some right flank pain is gotten worse. Today associated with nausea and retching. No vomiting. No dysuria but suspected hematuria. No fever or chills. Physical Examination: Older female nauseated. Vital signs stable afebrile. present in the room. H EENT exam unremarkable. Neck nontender. Lungs clear to auscultation bilaterally. Heart regular rhythm rate about 50 no murmur. Abdomen soft. Nondistended. Normal bowel sounds. Complains of pain in the right flank. Not reproducibly tender. No No sign or McBurney's point tenderness. No signs of bowel obstruction. No hernia or mass. No pulsatile mass. Patient moving all 4 extremities. Back nontender no CVA tenderness. Skin dry skin psoriasis. Neurologically she is awake and alert with no focal motor deficits. Test Results: White count of 5 hemoglobin 13 no bands chemistries unremarkable normal creatinine and gap. Liver enzymes are normal. Urinalysis shows greater than 100 red blood cells consistent with a kidney stone no signs of infection. No whites or nitrates nor any bacteria. CT flank study shows a 4 mm right mid ureter stone with hydroureter and hydronephrosis. This is read by the radiologist and reviewed by me. There is also increased colonic stool consistent with constipation. Repeat exam at 1:30 AM patient still complaining of discomfort and nausea. She will be given a second dose of morphine and Zofran. Currently were awaiting a urinalysis and the CAT scan interpretation. Repeat exam at 2:45 AM patient looks and feels much better. She denies discussed treatment options and observation admission versus discharged home. She says she feels good enough to be discharged home her and her are both comfortable with that plan. I will write her for [place] for pain, Zofran for nausea and magnesium citrate for constipation and try to see if pharmacy can fill them prior to her discharge. Emergency Department Course and Treatment: Older female right flank pain consistent with a possible kidney stone versus other etiologies. She will be medicated with IV morphine, Zofran for nausea and IV fluids. Screening labs and a CT flank study are being obtained. Treatment Plan: Strain the urine for possible passed stone. Plenty of fluids and rest. Fiber. Follow-up with Dr. Elli gilmore. Return if worse. Disposition: Discharge Impression: Acute right flank pain secondary to 4 mm mid right ureteral stone with hydroureter and hydronephrosis History of DVT on Eliquis This note was generated with [employer] dictation software. It may contain incorrect words, spelling, and punctuation that were not noted in review of the chart prior to signing ED Disposition - Plan for ED Patient: Referrals: Blanco Fishman MD [Primary Care Provider] -
[2021-01-25 00:56] LABS: Absolute Neutrophil Count 3.1 X10^3/uL (2.0-7.7); Basophil# 0.05 X10^3/uL; Basophil% 0.9 % (0-1); Eosinophil# 0.19 X10^3/uL; Eosinophils% 3.3 % (0-5); Hemoglobin 13.4 g/dL (12.0-15.0); Lymphocyte % 26.2 % (19-41); Mean Corp Hgb Conc 32.7 g/dL (32-36); Mean Corpuscular Hgb 33.4 pg (27.0-32.0); Mean Corpuscular Volume 102.2 fL (81-99); Mean Platelet Vol. 9.4 fl (6.2-12.0); Monocyte# 0.83 X10^3/uL; Monocyte% 14.5 % (0-10); NRBC Flagged by Analyzer 0 % (0-5); Neutrophil # 3.14 X10^3/uL (2.7-7.7); Neutrophil % 54.9 % (47-70); Platelet Count 291 K/mm3 (150-450); RBC Distribution Width SD 53.1 fl (35.1-43.9); Red Blood Count 4.01 M/mm3 (4.2-5.4); White Blood Count 5.7 K/mm3 (4.4-11.0)
[2021-01-25] MEDS: Ondansetron 4 MG/2 ML Vial IV ×2 (00:57→01:45)
[2021-01-25] MEDS: Morphine 4 MG/ML Syringe IV ×2 (00:57→01:45)
[2021-01-25] MEDS: 0.9% Normal Saline 1,000 ML 125 ML IV (00:58)
[2021-01-25 01:08] LABS: ALB/GLOB Ratio 0.8 RATIO (0.9-2.4); AST(SGOT) 37 U/L (15-37); Alanine Aminotransfer ALT/SGPT 47 U/L (13-56); Albumin, Serum 3.4 g/dL (3.2-5.0); Alkaline Phosphatase 104 U/L (45-117); Anion Gap 5 (5-15); BUN 13 mg/dL (7-18); BUN/Creat Ratio 16.2 RATIO (10-20); Calcium,Total 9.3 mg/dL (8.5-10.1); Chloride 107 mmol/L (98-107); EST Glomerular Filtration Rate 73 mL/min (>60); Est Glom Filt Rate - Afr Amer 88 mL/min (>60); Estimated Creatinine Clearance 38.27 ml/min; Glucose 128 mg/dL (74-106); Potassium 3.9 mmol/L (3.5-5.1); Protein, Total 7.4 g/dL (6.4-8.2); Sodium Level 140 mmol/L (136-145)
[2021-01-25 01:50] VITALS: O2SAT 82
[2021-01-25 01:53] LABS: Bacteria 0 SEEN /hpf (None Seen); Mucous, Urine 0 SEEN /hpf (<or=2+); Squamous Epithelial Cells - UA 0 SEEN /hpf (5-10)
[2021-01-25 01:54] VITALS: BP 177/66; PULSE 79; RESP 13; TEMP 36.6; O2SAT 97
[2021-01-25 02:07] LABS: Color, Urine Amber (Yellow); Glucose, Dipstick Normal (Normal); Ketone-Dipstick 15 mg/dl (Negative); Leukocyte Esterase-Dipstick 25 /ul (Negative); Nitrite-Dipstick Negative (Negative); Occult Blood-Urine 250 /ul (Negative); Protein-Dipstick 30 mg/dl (Negative); Specific Gravity, Urine 1.015 (1.002-1.030); Urine Bilirubin Dipstick Negative (Negative); Urine Clarity Cloudy (Clear); Urine Urobilinogen Normal (Normal)
[2021-01-25 02:14] LABS: Red Blood Cells-Urine > 100 SEEN /hpf (0-5); White Blood Cells 0-5 SEEN /hpf (0-5)
--- NOTE | 2021-01-25 02:57 | ED.DEP ---
ED Disposition - Plan for ED Patient: Disposition: Home or Assisted Living Instructions: ED Kidney Stone w/ Colic Prescriptions: Magnesium Citrate [Citrate Of Magnesia] 150 ml PO X1 #2 ml Prescription Printed Hydrocodone Bitart/Apap 5-325 [[place] 5MG-325MG] 1 tablet PO Q4H PRN PRN 3 Days #14 tab PRN Reason: Pain Prescription Printed Ondansetron [Zofran Odt] 4 mg PO Q8H PRN PRN #7 tablet PRN Reason: Nausea Prescription Printed Referrals: Blanco Fishman MD [Primary Care Provider] - As Needed Olivier Calloway MD [STAFF PHYSICIAN] - As soon as possible Additional Instructions: Plenty of fluids and rest to help pass the stone. Plenty of fruits, vegetables and fiber to help decrease the constipation. [place] for pain for the kidney stone as needed. Strain your urine for the past kidney stone. Magnesium citrate for the constipation Zofran as needed for nausea.
[2021-01-25 03:00] VITALS: BP 182/74; PULSE 96; RESP 16; RESP 17; O2SAT 99
== END 2021-01-25 03:57 | disposition home or self-care (01) ==
PROVIDERS: Emergency Provider Emergency Medicine; PCP Family Medicine
DX: N13.2 Hydronephrosis with renal and ureteral calculous obstruction (principal); K59.00 Constipation, unspecified; J45.909 Unspecified asthma, uncomplicated; Z90.49 Acquired absence of other specified parts of digestive tract; Z79.01 Long term (current) use of anticoagulants; Z79.899 Other long term (current) drug therapy; Z86.718 Personal history of other venous thrombosis and embolism; Z86.73 Personal history of transient ischemic attack (TIA), and cerebral infarction without residual deficits
CPT/HCPCS: 74176; 80053; 81001; 85025; 96361; 96374; 96375; 96376; 99284; J7030; P9612; A4216; J2405

== ENCOUNTER → 2021-02-01 | Outpatient (CLI) | payer MEDICARE, SELFPAY | END | disposition home or self-care (01) | LOC: LABSPEC 16:59 | PROVIDERS: PCP Family Medicine; Referring Provider Urology; Visit Provider Urology | DX: N20.1 Calculus of ureter (principal) | CPT/HCPCS: 82360 ==

== ENCOUNTER → 2021-02-11 14:56 | Outpatient (CLI) | payer MEDICARE, SELFPAY ==
[2021-02-11 15:05] VITALS: BP 135/66; PULSE 75; RESP 16; TEMP 35.8; O2SAT 98; BMI 27.9
[2021-02-11] MEDS: DENOSUMAB 60 MG/ML SC (15:08)
== END ==
PROVIDERS: PCP Family Medicine; Referring Provider Internal Medicine Endocrinology, Diabetes & Metabolism; Visit Provider Internal Medicine Endocrinology, Diabetes & Metabolism
DX: M81.0 Age-related osteoporosis without current pathological fracture (principal)
CPT/HCPCS: 96372; J0897

== ENCOUNTER → 2021-06-03 14:56 | Outpatient (CLI) | payer MEDICARE, SELFPAY | PROVIDERS: PCP Family Medicine; Referring Provider Nurse Practitioner Family; Visit Provider Nurse Practitioner Family | DX: M80.00XD Age-related osteoporosis with current pathological fracture, unspecified site, subsequent encounter for fracture with routine healing (principal) | CPT/HCPCS: 36415; 82306 ==

== ENCOUNTER → 2021-06-18 14:07 | Outpatient (CLI) | payer MEDICARE, SELFPAY ==
--- NOTE | 2021-06-18 14:22 | CT_ITS ---
STUDY: CT Chest W/O Contrast Injection 06/18/2021 3:03 PM REASON FOR EXAM: Female, 86 years old. Concern for bronchiectasis -- HRCT RADIATION DOSAGE (If Supplied By Facility): CTDIvol = ( 12.46 ) mGy, DLP = ( 389.16 ) mGycm Individualized dose optimization techniques were used for this CT. TECHNIQUE: Transaxial imaging was performed withoutIV contrast material. COMPARISON: CTAP 01/25/[address] 07.03.11 FINDINGS: There are degenerative changes of the shoulders. There is no pneumothorax. There is no demonstrated pleural abnormality. There is minimal lower lobe bronchiectasis bilaterally with scarring. There are calcifications of the coronary arteries. There are multiple small lymph nodes within the mediastinum, which are normal in size and morphology most compatible with reactive lymph hyperplasia. Normal hilar regions. Normal pulmonary arteries. There is atherosclerotic calcification of the aortic arch with tortuosity and elongation of the aortic arch and descending thoracic aorta. There are multi-level degenerative changes of the thoracic spine. There are stable compression deformities of T11-T12 and L1. The compression of T12 and L1 are new since 07.03.11 There are no acute findings of the upper abdomen. CT/Chest without Contrast IMPRESSION: There is minimal lower lobe bronchiectasis bilaterally with scarring. There are stable compression deformities of T11-T12 and L1 since 01.25.21. The compression of T12 and L1 are new since 07.03.11 Electronically Signed: Andres Pantoja MD at 15:11 EDT , Service support ,
== END ==
PROVIDERS: PCP Family Medicine; Visit Provider Internal Medicine Critical Care Medicine
DX: J45.909 Unspecified asthma, uncomplicated (principal); J47.9 Bronchiectasis, uncomplicated
CPT/HCPCS: 71250

== ENCOUNTER → 2021-07-28 14:51 | Outpatient (CLI) | payer MEDICARE, SELFPAY | PROVIDERS: PCP Family Medicine; Referring Provider Nurse Practitioner Acute Care; Visit Provider Nurse Practitioner Acute Care | DX: J45.909 Unspecified asthma, uncomplicated (principal); J47.9 Bronchiectasis, uncomplicated | CPT/HCPCS: 94667 ==

== ENCOUNTER → 2021-07-30 13:21 | Outpatient (CLI) | payer MEDICARE, SELFPAY | PROVIDERS: PCP Family Medicine; Referring Provider Nurse Practitioner Acute Care; Visit Provider Nurse Practitioner Acute Care | DX: R50.9 Fever, unspecified (principal) | CPT/HCPCS: 87635; C9803; U0005; U0003 ==

== ENCOUNTER → 2021-08-17 14:51 | Outpatient (CLI) | payer MEDICARE, SELFPAY ==
[2021-08-17 14:59] VITALS: BP 129/51; PULSE 66; RESP 16; TEMP 36.1; BMI 28.5
[2021-08-17] MEDS: DENOSUMAB 60 MG/ML SC (15:04)
== END ==
PROVIDERS: PCP Family Medicine; Referring Provider Internal Medicine Endocrinology, Diabetes & Metabolism; Visit Provider Internal Medicine Endocrinology, Diabetes & Metabolism
DX: M80.00XD Age-related osteoporosis with current pathological fracture, unspecified site, subsequent encounter for fracture with routine healing (principal)
CPT/HCPCS: 96372; J0897

== ENCOUNTER 2021-12-02 15:31 | Outpatient (CLI) | payer MEDICARE, SELFPAY ==
[2021-12-02 17:55] LABS: Absolute Lymphocyte Count 1.92 X10^3/uL (0.83-4.51); Absolute Neutrophil Count 3.4 X10^3/uL (2.0-7.7); Basophil# 0.07 X10^3/uL; Basophil% 1.1 % (0-1); Eosinophil# 0.21 X10^3/uL; Eosinophils% 3.3 % (0-5); Hematocrit 44.9 % (37-47); Lymphocyte # 1.92 X10^3/ul (0.83-4.51); Lymphocyte % 30.1 % (19-41); Mean Corp Hgb Conc 33.4 g/dL (32-36); Mean Corpuscular Hgb 33.9 pg (27.0-32.0); Mean Corpuscular Volume 101.6 fL (81-99); Mean Platelet Vol. 10.5 fl (6.2-12.0); Monocyte# 0.79 X10^3/uL; Monocyte% 12.4 % (0-10); NRBC Flagged by Analyzer 0 % (0-5); Neutrophil # 3.37 X10^3/uL (2.7-7.7); Neutrophil % 52.8 % (47-70); Platelet Count 289 K/mm3 (150-450); Red Blood Count 4.42 M/mm3 (4.2-5.4); White Blood Count 6.4 K/mm3 (4.4-11.0)
[2021-12-02 18:12] LABS: ALB/GLOB Ratio 0.9 RATIO (0.9-2.4); AST(SGOT) 46 U/L (15-37); Alanine Aminotransfer ALT/SGPT 64 U/L (13-56); Albumin, Serum 3.8 g/dL (3.2-5.0); Alkaline Phosphatase 99 U/L (45-117); Anion Gap 4 (5-15); BUN 12 mg/dL (7-18); BUN/Creat Ratio 20.6 RATIO (10-20); Calcium,Total 9.7 mg/dL (8.5-10.1); Chloride 104 mmol/L (98-107); Creatinine, Serum 0.58 mg/dL (0.55-1.02); EST Glomerular Filtration Rate 104 mL/min (>60); Est Glom Filt Rate - Afr Amer 126 mL/min (>60); Globulin 4.1 g/dL (2.2-4.2); Glucose 99 mg/dL (74-106); Potassium 3.8 mmol/L (3.5-5.1); Protein, Total 7.9 g/dL (6.4-8.2); Sodium Level 138 mmol/L (136-145)
== END 2021-12-02 23:59 | disposition home or self-care (01) ==
LOC: MTLAB 15:32
PROVIDERS: PCP Family Medicine; Referring Provider Physician Assistant; Visit Provider Physician Assistant
DX: L40.0 Psoriasis vulgaris (principal); D48.5 Neoplasm of uncertain behavior of skin; Z79.899 Other long term (current) drug therapy
CPT/HCPCS: 36415; 80053; 85025; 86480

== ENCOUNTER 2021-12-13 15:31 | Outpatient (CLI) | payer MEDICARE, SELFPAY ==
[2021-12-15 22:06] LABS: QNTFERON TB Mitogen Value > 10.00 IU/mL (.); QNTFERON TB Nil Value 0.03 IU/mL (.); QNTFERON TB1+ Ag Value 0.04 IU/mL (.); QNTFERON TB2+ Ag Value 0.04 IU/mL (.)
[2021-12-16 08:18] LABS: QNTIFERON TB Positive Criteria Negative (Negative)
== END 2021-12-13 23:59 | disposition home or self-care (01) ==
LOC: MTLAB 15:32
PROVIDERS: PCP Family Medicine; Referring Provider Physician Assistant; Visit Provider Physician Assistant
DX: L40.0 Psoriasis vulgaris (principal); D48.5 Neoplasm of uncertain behavior of skin; Z79.899 Other long term (current) drug therapy
CPT/HCPCS: 86480

== ENCOUNTER → 2022-02-15 | Outpatient (CLI) | payer MEDICARE, SELFPAY ==
[2022-02-15 14:53] VITALS: BP 129/61; PULSE 82; RESP 16; TEMP 36.5; O2SAT 98; BMI 29.7
[2022-02-15] MEDS: DENOSUMAB 60 MG/ML SC (14:53)
== END | disposition home or self-care (01) ==
LOC: MEDOUTP 14:36
PROVIDERS: PCP Family Medicine; Referring Provider Internal Medicine Endocrinology, Diabetes & Metabolism; Visit Provider Internal Medicine Endocrinology, Diabetes & Metabolism
DX: M80.00XD Age-related osteoporosis with current pathological fracture, unspecified site, subsequent encounter for fracture with routine healing (principal)
CPT/HCPCS: 96372; J0897

== ENCOUNTER → 2022-06-16 | Outpatient (CLI) | payer MEDICARE, SELFPAY ==
[2022-06-16 15:23] LABS: Vitamin D,25 Hydroxy 30.6 ng/mL
== END | disposition home or self-care (01) ==
LOC: MTLAB 11:37
PROVIDERS: PCP Family Medicine; Referring Provider Internal Medicine Endocrinology, Diabetes & Metabolism; Visit Provider Internal Medicine Endocrinology, Diabetes & Metabolism
DX: E55.9 Vitamin D deficiency, unspecified (principal)
CPT/HCPCS: 36415; 82306

== ENCOUNTER → 2022-08-19 | Outpatient (CLI) | payer MEDICARE, SELFPAY ==
[2022-08-19 14:07] VITALS: BP 115/77; PULSE 100; RESP 18; TEMP 35.6
[2022-08-19] MEDS: DENOSUMAB 60 MG/ML SC (14:09)
== END | disposition home or self-care (01) ==
LOC: MEDOUTP 13:56
PROVIDERS: PCP Family Medicine; Referring Provider Internal Medicine Endocrinology, Diabetes & Metabolism; Visit Provider Internal Medicine Endocrinology, Diabetes & Metabolism
DX: M81.0 Age-related osteoporosis without current pathological fracture (principal)
CPT/HCPCS: 96372; J0897

== ENCOUNTER → 2022-12-23 | Outpatient (CLI) | payer MEDICARE, SELFPAY | END | disposition home or self-care (01) | PROVIDERS: PCP Family Medicine; Visit Provider Otolaryngology | DX: B37.0 Candidal stomatitis (principal) | CPT/HCPCS: 87070 ==

== ENCOUNTER 2023-02-17 13:45 | Outpatient (CLI) | payer MEDICARE, SELFPAY ==
[2023-02-17] MEDS: DENOSUMAB 60 MG/ML SC (14:07)
[2023-02-17 14:10] VITALS: BP 140/64; PULSE 83; RESP 16; TEMP 36.1; O2SAT 98
== END 2023-02-17 13:46 | disposition home or self-care (01) ==
LOC: MEDOUTP 13:46
PROVIDERS: PCP Family Medicine; Referring Provider Internal Medicine Endocrinology, Diabetes & Metabolism; Visit Provider Internal Medicine Endocrinology, Diabetes & Metabolism
DX: M81.0 Age-related osteoporosis without current pathological fracture (principal)
CPT/HCPCS: 96372; J0897

== ENCOUNTER → 2023-04-21 | Outpatient (CLI) | payer MEDICARE, SELFPAY ==
[2023-04-24 09:13] LABS: QNTFERON TB Mitogen Value > 10.00 IU/mL (.); QNTFERON TB Nil Value 0 IU/mL (.); QNTFERON TB1+ Ag Value 0.01 IU/mL (.); QNTFERON TB2+ Ag Value 0.03 IU/mL (.); QNTIFERON TB Positive Criteria Negative (Negative)
== END | disposition home or self-care (01) ==
LOC: MTLAB 15:41
PROVIDERS: PCP Family Medicine; Referring Provider Dermatology Pediatric Dermatology; Visit Provider Dermatology Pediatric Dermatology
DX: L40.0 Psoriasis vulgaris (principal); Z79.899 Other long term (current) drug therapy
CPT/HCPCS: 36415; 86480

== ENCOUNTER 2023-07-19 11:26 | Emergency (ER) | payer MEDICARE, SELFPAY ==
[2023-07-19 11:27] VITALS: BP 128/72; PULSE 97; RESP 18; TEMP 36.4; O2SAT 97
--- NOTE | 2023-07-19 12:21 | EDS_ITS ---
HPI History of Present Illness Chief Complaint: Cold Sx PFSH PFS Medical History Anemia Anxiety Asthma Back pain Compression fracture GERD (gastroesophageal reflux disease) GI bleed History of shingles Hypothyroidism Injury of back Kidney stones Non-smoker Post-menopausal Psoriasis Shortness of breath on exertion TIA (transient ischemic attack) Tremors of nervous system Ulcer Vertebral fracture, osteoporotic Wears glasses Home Medications loratadine 10 mg tablet 10 mg PO QHS allergies 09/22/15 [History Last Taken 07/19/23] risankizumab-rzaa 150 mg/1.66 mL (75 mg/0.83mL x 2) subcut syringe kit (Skyrizi) mg subcut 02/11/21 [History Last Taken 07/19/23] cholecalciferol (vitamin D3) 25 mcg (1,000 unit) tablet (Vitamin D3) 5,000 unit PO DAILY 04/30/21 [History Last Taken Unknown] levothyroxine 125 mcg tablet 100 mcg PO DAILY 06/03/21 [History Last Taken Unknown] PEP device #1 ea 09/12/22 [Rx Last Taken Unknown] apixaban 2.5 mg tablet (Eliquis) 2.5 mg PO ONCE 12/13/22 [History Last Taken Unknown] lansoprazole 30 mg capsule,delayed release 30 mg PO DAILY 12/13/22 [History Last Taken Unknown] fluticasone furoate 200 mcg-vilanterol 25 mcg/dose inhalation powder (Breo Ell ipta) 1 inh inhalation Q24H #1 device 03/10/23 [Rx Last Taken Unknown] Prolia 60 mg/mL subcutaneous syringe (denosumab) 60 mg subcut [id number] osteoporosis #1 mL 06/12/23 [Rx Last Taken 07/19/23] Allergy/AdvReac Type Severity Reaction Status Date / Time fentanyl Allergy Shortness Verified 07/19/23 11:27 of breath Family History Father CHF (congestive heart failure) CVA (cerebral vascular accident) Paget's disease Surgical History Hx of appendectomy Hx of cholecystectomy Hx of foot surgery Social History Smoking Status: Never smoker EXAM Physical Exam Const Vital Signs: 07/19/23 11:27 07/19/23 12:57 07/19/23 14:00 Temperature 97.6 F L Temperature Source Temporal Pulse Rate 97 90 Respiratory Rate 18 20 H Respiratory Effort Short of Breath Respiratory Pattern Normal Blood Pressure 128/72 H Blood Pressure Mean 90 Pulse Ox 97 95 Oxygen Delivery Method Room Air 07/19/23 15:00 Temperature Temperature Source Pulse Rate 88 Respiratory Rate 21 H Respiratory Effort Respiratory Pattern Blood Pressure Blood Pressure Mean Pulse Ox 92 Oxygen Delivery Method [facility] MDM Narrative Medical decision making narrative: HISTORY OF PRESENT ILLNESS: 88-year-old female here with fever chills and cold symptoms since July 11. Notes shortness of breath, cough is nonproductive. Denies any lower extremity edema. No signs of DVT but notes compliance with Eliquis. Denies any recent travel, surgery, unilateral leg swelling. Denies any mopped assist. Denies any sick contacts. States he had a fever at home. She notes frequency and blood in her urine as well. Denies abdominal pain, headache or chest pain. Denies any syncope. REVIEW OF SYSTEMS: Pertinent positives: Fever, chills, shortness of breath Pertinent negatives: Chest pain, syncope PHYSICAL EXAM: Nursing triage notes reviewed, Vital signs reviewed Constitutional: please see mdm HENT: MMM Eyes: Pupils equal round and reactive to light, Extraocular muscles intact Neck: No stridor, no JVD, full neck ROM Lungs: Clear to auscultation, No wheezing or rales. No increased work of breathing, no conversational dyspnea, no accessory muscle use, no nasal flaring. No respiratory distress noted Heart: Regular rate and rhythm, No murmurs, No rubs and No gallops, 2+ distal pulses (radial, femoral, posterior tibial) in all extremities Abdomen: Soft, there is no tenderness, rigidity, rebound or guarding, no obvious peritoneal signs, no palpable pulsatile abdominal masses, no auscultated abdominal bruit : No CVAT Extremities: No edema Neuro: No focal neurological deficits, cranial nerves II through XII intact, 5/5 strength in all extremities. Intact sensation to light touch in all extremities, 2+ reflexes bilateral patella tendons. Normal gait. No ataxia. Skin: No rash or lesions noted MEDICAL DECISION MAKING: Chief Complaint: Fever, chills, shortness of breath External records reviewed: Recent [facility] imaging of the chest Factors affecting care: On Eliquis, asthma, Social determinants of health: Elderly History obtained from others: The patient's Consults: none MDM Narrative: Patient was hemodynamically stable, afebrile, nontoxic-appearing. I considered the following differential diagnosis: Pneumonia, COVID, flu, UTI, nonspecific viral illness I obtained a broad lab and imaging work-up to further elucidate the etiology of patient complaint specifically rule out signs of CHF, pneumonia, COVID, flu, ACS. Give the patient anti-inflammatories and a small fluid bolus. ALL IMAGES (IF OBTAINED) HAVE BEEN PERSONALLY REVIEWED AND INTERPRETED BY MYSELF. EKG with normal sinus rhythm, normal axis, normal intervals, no STEMI BMP within normal limits not suggestive of increased ventricular stretch CBC without leukocytosis, severe anemia, no thrombocytopenia. BMP without evidence of significant electrolyte abnormalities, no anion gap, no acute kidney injury. LFTs with mild elevation in liver enzymes and alkaline phosphatase Troponin is negative, no evidence of myocardial ischemia Lipase is wnl indicating no pancreatic inflammation. COVID/flu is negative I have personally reviewed the patient's chest x-ray. Chest x-ray is unremarkable for pulmonary edema, pneumothorax, pneumonia or focal cardiopulmonary abnormality. The synthesis of the patient's history, physical exam, labs images suggest no acute life-limiting infection. Patient is likely some from a viral illness. She was given discharge take Tylenol, ibuprofen return if symptoms change or worsen. There is no clinical lab or imaging evidence to suggest bacterial pneumonia, ACS, heart failure. No physical exam evidence suggest asthma or COPD. Low suspicion for PE at this time given the patient's compliance with anticoagulation. Recommended outpatient urology follow-up. The patient and/or family, caregivers express understanding. The patient and/or family, caregivers agrees with the plan. Shared decision making: I will have a discussion with the patient and or visitors regarding risk/benefits of further testing or admission. They will be made aware of of the risk/benefits inherent in this decision they will be given the opportunity to voice understanding. Total critical care time today provided was at least 0 minutes. This excludes separately billable procedures. Critical care time (if documented) is secondary to the patient having high probability of clinically significant/life threatening deterioration in the patient's condition which required my urgent intervention. Impression: 1. Viral URI 2. Fever 3. hematuria Dispo: discharge Lab Data Labs: Laboratory Results - last 24 hr 07/19/23 07/19/23 07/19/23 13:39 14:43 15:38 WBC 5.4 RBC 3.57 L Hgb 12.0 Hct 35.7 L MCV 100.0 H MCH 33.6 H MCHC 33.6 RDW Std Deviation 49.5 H RDW Coeff of Mehrdad 13.4 Plt Count 248 MPV 9.4 Sodium 137 Potassium 4.1 Chloride 106 Carbon Dioxide 26.0 Anion Gap 5 BUN 7 Creatinine 0.45 L Estim Creat Clear Calc 38.89 Est GFR (MDRD) Af Amer 170 Est GFR (MDRD) Non-Af 140 BUN/Creatinine Ratio 15.6 Glucose 93 Calcium 8.7 Total Bilirubin 0.50 AST 50 H ALT 70 H Alkaline Phosphatase 131 H Troponin I High Sens 6 B-Natriuretic Peptide 43.9 Total Protein 7.3 Albumin 2.8 L Globulin 4.5 H Albumin/Globulin Ratio 0.6 L Lipase 26 Urine Color Yellow Urine Clarity Clear Urine pH 8.0 Ur Specific [place] 1.015 Urine Protein Negative Urine Glucose (UA) Normal Urine Ketones 5 H Urine Occult Blood Negative Urine Nitrite Negative Urine Bilirubin Negative Urine Urobilinogen Normal Ur Leukocyte Esterase Negative Urine RBC 0 SEEN Urine WBC 0 SEEN Ur Squamous Epith Cells 0 SEEN Urine Bacteria 0 SEEN Urine Mucus 0 SEEN Radiography Diagnostic Testing: Clinical Impression(s) from Imaging Studies Chest X-Ray 07/19/23 13:45 IMPRESSION: Indeterminate 2 cm nodular focus projecting over the right lung base, this may be secondary to half of the shadows however cannot exclude a pulmonary nodule, consider chest CT for further characterization. Electronically Signed: Mckenzie Velasco MD at 14:05 EDT , Discharge Plan Triage Chief Complaint: Cold Sx Other Complaint: Fever ED Provider: Ino Ortiz Dx/Rx/DC Orders Instructions: ED URI, Viral, No Abx (Adult) Prescriptions: No Action levothyroxine 125 mcg tablet 100 mcg PO DAILY Prolia 60 mg/mL syringe 60 mg SC [id number] Qty: 1 1RF (DME) PEP device See Rx Instructions .ROUTE .MEDSUPPLY Qty: 1 0RF Rx Instructions: with training Eliquis 2.5 mg tablet 2.5 mg PO ONCE lansoprazole 30 mg capsule,delayed release(DR/EC) 30 mg PO DAILY loratadine 10 MG tablet 10 mg PO QHS Skyrizi 150mg/1.66mL(75 mg/0.83 mL x2) Syringe Kit SUBCUT cholecalciferol (vitamin D3) [Vitamin D3] 25 mcg (1,000 unit) tablet 5,000 unit PO DAILY Breo Ellipta 200-25 mcg/dose blister with device 1 inh inhalation Q24H Qty: 1 11RF Primary Care Provider: Blanco Fishman Referrals: Olivier Calloway MD [Med Staff - Active Staff] - (For hematuria) Blanco Fishman MD [Primary Care Provider] - Activity Restrictions/Additional Instructions: Thank you for trusting us with your care today! Please take Tylenol (2 pills, 650 mg), ibuprofen (2 pills, 400 mg) every 6 hours as needed for pain and fever control. Please return to the emergency department if your symptoms change or worsen. Please follow-up with urology given your concern for hematuria for outpatient evaluation. Please follow with your primary care physician for further outpatient evaluation and management. Disposition Disposition: Home, Self Care
--- NOTE | 2023-07-19 13:27 | EKG12_ITS ---
Test Reason : Blood Pressure : / mmHG Vent. Rate : 088 BPM Atrial Rate : 088 BPM P-R Int : 142 ms QRS Dur : 066 ms QT Int : 362 ms P-R-T Axes : 030 011 034 degrees QTc Int : 438 ms Normal sinus rhythm Normal ECG Confirmed by JONATHAN COATS, ARNULFO ([id number]), photograph editor ANDREW QUINONES ([id number]) on 07/21/2023 7:10:45 AM Referred By: Confirmed By:JIMY CASTILLO MD
[2023-07-19 13:36] VITALS: BMI 27.1
[2023-07-19] MEDS: Ketorolac 15 MG/ML Vial IV (13:37)
--- NOTE | 2023-07-19 13:45 | RAD_ITS ---
INDICATION: cough EXAMINATION/TECHNIQUE: X-RAY - XR Chest 2 Views COMPARISON: February 09, [address] dated June 18, 2021 FINDINGS: LINES/DEVICES: None. LUNGS: There are stable prominent interstitial markings within the mid and lower lungs. There is a 2 cm nodular opacity projecting over the right lung base. No pneumothorax. MEDIASTINUM AND CARDIOVASCULAR STRUCTURES: Cardiac silhouette not enlarged. Central airways and mediastinal contour are unremarkable. BONES AND SOFT TISSUES: The bones are diffusely demineralized. There are multiple anterior compression deformities within the lower thoracic spine that are likely chronic. RAD/Chest PA and Lateral IMPRESSION: Indeterminate 2 cm nodular focus projecting over the right lung base, this may be secondary to half of the shadows however cannot exclude a pulmonary nodule, consider chest CT for further characterization. Electronically Signed: Mckenzie Velasco MD at 14:05 EDT ,
[2023-07-19 14:00] VITALS: PULSE 90; RESP 20; O2SAT 95
[2023-07-19] MEDS: 0.9% Normal Saline (500mL Bag) 500 ML 1000 ML IV (14:04)
[2023-07-19 14:05] LABS: BNP,B-Type NATRIURETIC PEPTIDE 43.9 pg/mL (0-100)
[2023-07-19 14:37] LABS: ALB/GLOB Ratio 0.6 RATIO (0.9-2.4); AST(SGOT) 50 U/L (15-37); Alanine Aminotransfer ALT/SGPT 70 U/L (13-56); Albumin, Serum 2.8 g/dL (3.2-5.0); Alkaline Phosphatase 131 U/L (45-117); Anion Gap 5 (5-15); BUN 7 mg/dL (7-18); BUN/Creat Ratio 15.6 RATIO (10-20); Calcium,Total 8.7 mg/dL (8.5-10.1); Chloride 106 mmol/L (98-107); Creatinine, Serum 0.45 mg/dL (0.55-1.02); EST Glomerular Filtration Rate 140 mL/min (>60); Est Glom Filt Rate - Afr Amer 170 mL/min (>60); Estimated Creatinine Clearance 38.89 ml/min; Globulin 4.5 g/dL (2.2-4.2); Glucose 93 mg/dL (74-106); Lipase 26 U/L (13-75); Potassium 4.1 mmol/L (3.5-5.1); Protein, Total 7.3 g/dL (6.4-8.2); Sodium Level 137 mmol/L (136-145); Troponin-I HS 6 pg/mL (3.0-54.0)
[2023-07-19 14:52] LABS: Hematocrit 35.7 % (37-47); Mean Corp Hgb Conc 33.6 g/dL (32-36); Mean Corpuscular Hgb 33.6 pg (27.0-32.0); Mean Platelet Vol. 9.4 fl (6.2-12.0); Platelet Count 248 K/mm3 (150-450); RBC Distribution Width CV 13.4 % (11.6-14.6); RBC Distribution Width SD 49.5 fl (35.1-43.9); Red Blood Count 3.57 M/mm3 (4.2-5.4); White Blood Count 5.4 K/mm3 (4.4-11.0)
[2023-07-19 15:00] VITALS: PULSE 88; RESP 21; O2SAT 92
[2023-07-19 15:46] LABS: Bacteria 0 SEEN /hpf (None Seen); Mucous, Urine 0 SEEN /hpf (<or=2+); Red Blood Cells-Urine 0 SEEN /hpf (0-5); Squamous Epithelial Cells - UA 0 SEEN /hpf (5-10); White Blood Cells 0 SEEN /hpf (0-5)
[2023-07-19 15:49] LABS: Glucose, Dipstick Normal (Normal); Ketone-Dipstick 5 mg/dl (Negative); Leukocyte Esterase-Dipstick Negative /ul (Negative); Nitrite-Dipstick Negative (Negative); Occult Blood-Urine Negative /ul (Negative); Protein-Dipstick Negative (Negative); Specific Gravity, Urine 1.015 (1.002-1.030); Urine Bilirubin Dipstick Negative (Negative); Urine Urobilinogen Normal (Normal)
[2023-07-19 15:59] LABS: Color, Urine Yellow (Yellow); Urine Clarity Clear (Clear)
== END 2023-07-19 17:41 | disposition home or self-care (01) ==
PROVIDERS: Emergency Provider Emergency Medicine; PCP Family Medicine; Visit Provider Emergency Medicine
DX: J06.9 Acute upper respiratory infection, unspecified (principal); B34.9 Viral infection, unspecified; R50.9 Fever, unspecified; J45.909 Unspecified asthma, uncomplicated; E03.9 Hypothyroidism, unspecified; Z79.899 Other long term (current) drug therapy; Z79.01 Long term (current) use of anticoagulants; Z86.73 Personal history of transient ischemic attack (TIA), and cerebral infarction without residual deficits
CPT/HCPCS: 71046; 80048; 80053; 81001; 83690; 83880; 84484; 85027; 87428; 93005; 96374; 99283; J7040; A4216

== ENCOUNTER 2023-08-18 13:45 | Outpatient (CLI) | payer MEDICARE, SELFPAY ==
[2023-08-18 13:57] VITALS: BP 146/67; PULSE 85; RESP 16; TEMP 36.4; O2SAT 93; BMI 24.2
[2023-08-18] MEDS: DENOSUMAB 60 MG/ML SC (13:59)
== END 2023-08-18 13:46 | disposition home or self-care (01) ==
LOC: MEDOUTP 13:45
PROVIDERS: PCP Family Medicine; Referring Provider Internal Medicine Endocrinology, Diabetes & Metabolism; Visit Provider Internal Medicine Endocrinology, Diabetes & Metabolism
DX: M81.0 Age-related osteoporosis without current pathological fracture (principal)
CPT/HCPCS: 96372; J0897

== ENCOUNTER → 2023-12-04 | Outpatient (CLI) | payer MEDICARE, SELFPAY ==
--- NOTE | 2023-12-04 13:30 | MRI_ITS ---
STUDY: MRI LUMBAR SPINE WITHOUT CONTRAST REASON FOR EXAM: Female, 88 years old. STENOSIS TECHNIQUE: Standardized fat and water weighted pulse sequences were obtained in the sagittal and axial planes. COMPARISON: Lumbar spine radiograph November 26, 2019. FINDINGS: Central compression fractures T10-L3. No retropulsion. T1 and T2 lengthening noted within the T11 vertebral body. T12-L1: Normal endplates. Normal disc height, hydration and morphology. Normal bilateral facet joints. Normal central canal and bilateral lateral recesses. Normal bilateral intervertebral neural foramina. Normal lumbar lordosis. There is no substantial scoliosis. Normal conus medullaris that terminates at the L1 level. L1-2: Normal spondylosis. Normal disc height, hydration and morphology. Normal bilateral facet joints. Normal central canal and bilateral lateral recesses. Normal bilateral intervertebral neural foramina. L2-3: Spondylosis endplates. Normal disc height, hydration and morphology. Hypertrophic bilateral facet joints. Moderate trefoil type narrowing central canal and bilateral lateral recesses. Narrowed bilateral intervertebral neural foramina. L3-4: Spondylosis endplates. Normal disc height, hydration and morphology. Hypertrophic bilateral facet joints. Moderate trefoil type narrowing central canal and bilateral lateral recesses. Narrowed bilateral intervertebral neural foramina. L4-5: Spondylosis endplates. Normal disc height, hydration and morphology. Hypertrophic bilateral facet joints. Severe trefoil type narrowing central canal and bilateral lateral recesses. Narrowed bilateral intervertebral neural foramina. Anterior subluxation. L5-S1: Spondylosis endplates. Normal disc height, hydration and morphology. Normal bilateral facet joints. Moderate trefoil type narrowing central canal and bilateral lateral recesses. Narrowed bilateral intervertebral neural foramina. Moderate central posterior disc marginal osteophyte. Normal visualized sacral ala. Normal visualized paraspinous soft tissue structures. Moderate right hydronephrosis. MRI/Spine Lumbar (Routine) IMPRESSION: Acute or subacute compression fracture T11. Multiple remote compression fractures and spondylosis and spinal stenosis as noted above. Grade 1 spondylolisthesis and severe spinal stenosis L4-5. Moderate right hydronephrosis. Electronically Signed: Glen Dickerson MD at 0:18 EST ,
== END | disposition home or self-care (01) ==
PROVIDERS: PCP Family Medicine; Referring Provider Anesthesiology; Visit Provider Anesthesiology
DX: M48.061 Spinal stenosis, lumbar region without neurogenic claudication (principal)
CPT/HCPCS: 72148

== ENCOUNTER 2024-01-02 13:00 | Outpatient (RCR) | payer MEDICARE, SELFPAY ==
--- NOTE | 2023-12-04 17:25 | HP.PTEVAL_ITS ---
Patient's Visit Information Visit Information Visit Information: MAX EASON is a 88 year old F referred to Physical Therapy by Dr. Joe Funes MD with a diagnosis of L IT band syndrome. Date of Evaluation: 12/01/23 Physical Therapist: Atilio Luther DPT Visit Plan Frequency: 2x /Week Duration: 6 Weeks Plan: Start with US to L greater trochanter/IT band. IT band stretching. As symptoms reduce add in glute med/max strengthening/activation. Subjective Subjective: Pt. is here today for her initial evaluation with diagnosis of L IT band syndrome. Pt. reports having increased pain for a few weeks to months no. No marked mechanism of injury noted. Increases pain: standing, walking, lifting. Decreases symptoms: sitting in a firm chair, lying on R side. Pt. is supposed to get an MRI as well, no yet scheduled. Pt. reports pain starts at her RL hip and radiated down her leg. She has increased tenderness to palpation throughout L leg, worst at L greater trochanter and along IT band. Pt. reports not leaving the house much, but tends to stay home and only leave for buddhist and doctors appointment. Pt. is hopeful to reduce her symptoms to get back to walking in the home without issues, as well as sleeping without pain. She has not done much for interventions. She did start taking gabapentin with some help, but she think this might be making her dizzy. She reports no falls. Pain R lateral hip: Pain Intensity (Out of 10): 3 Pain Intensity Range: 1 and 7 R lateral leg: Pain Intensity (Out of 10): 3 Pain Intensity Range: 1 and 7 Objective Objective: POSTURE: Pt. has flexed posture with increased wt. shift to R side. PALPTION: Pt. has marked tenderness along IT band and greater trochanter on the LLE. Pt. has piriformis pain as well on L side. NEURO: Pt. has normal sensation in BLEs, normal DTR of BLEs. Pt. is able to rise on heels and toes without issues. ROM: Pt. has mod loss with lumbar spine in all directions no change in LLE symptoms with lumbar spine ROM. L hip: ER 45deg increase NW, IR 15deg mild increase in L groin pain, + Obers test, Pt. has tightness in HS as well. MMT: Pt. has marked weakness throughout BLEs 4-/5 throughout. except 3+/5 L hip abd and ER motions, slight increase in symptoms witth L hip MMT. GAIT: Pt. ambulates with SPC, but did reach out for mccallum and this PT for assistance at times. Balance/Special Test Scores Lower Extremity Functional Score: 26 Goals Goal 1:: LTG: pt. to be I with HEP. Goal Time Frame: 4-6 Weeks Goal 2:: LTG: Pt. to have negative obers test for both pain and tissue tightness . Goal Time Frame: 4-6 Weeks Goal 3:: LTG: Pt. to ambulate without increase in L leg pain. Goal Time Frame: 4-6 Weeks Goal 4:: STG: Pt. to be able to sit without increase in L leg pain. Goal Time Frame: 2-4 Weeks Goal 5:: LTG: Pt. to complete all household work without increase in symptoms. Goal Time Frame: 4-6 Weeks Rehabilitation Potential Physical Therapy Diagnosis: Pt. has signs and symptoms consistent with L IT band syndrome. Pt. has marked IT band tightness, glute med/max weakness on L side as well. She would benefit from PT to address the above limitations getting back to all home activities without limitations. Rehabilitation Potential: Good Anticipated Interventions Patient/Client Instruction: Educate patient on: Condition, Plan of Care, Risk Factors and Benefits of Fitness Program For the Purpose of:: To improve decision making, To facilitate caregiver knowledge, To improve self management, To prevent re-injury and To improve ability to perform tasks related to life management Therapeutic Exercise to Include: Strength training, Power training, Endurance training, Postural training, Flexibilty training and Dynamic Lumbar Stabilization For the Purpose of:: To decrease pain, To increase ROM, To improve nutrient delivery to tissue, To increase oxygenation perfusion, To improve muscle performance and motor function, To improve ability to perform ADL's, To improve health of tissue, To decrease soft tissue restriction and To increase flexibility/ROM Cryotherapy (ice pack, ice massage): Yes Thermo therapy (hot pack): Yes Ultrasound (thermal/non thermal): Yes For the Purpose of:: To decrease pain, To increase ROM, To improve nutrient delivery to tissue, To increase oxygenation perfusion and To improve muscle pe rformance and motor function Text: Thank you for the opportunity to evaluate your patient. For Medicare and Medicare HMO plans, please review the plan of care and approve it. It will need to be FAXED BACK to us at [phone] for Medicare purposes. For Medicare only, by signing this I certify the plan of care. Please let me know if there are questions or concerns regarding this plan of care. Physician Signature: Date:
--- NOTE | 2024-01-03 13:24 | HP.PTREVAL_ITS ---
Re-Evaluation Intro: Dr. Joe Funes MD, It has been my pleasure to treat MAX EASON over the last 9 visits for L IT band syndrome. Please see the progress note below for an update on the physical therapy plan of care! Subjective Subjective: Pt reports she was doing well, walking better and having less pain in her LLE. Pt went up and down stairs a lot over the weekend and had an instance where she felt like she was going to lose her balance, but caught hers elf. Has an appointment with back doctor soon to discuss next steps with her vertebral fxs. Pain in her back seems to be the most painful at the moment, L knee still feels somewhat unstable. Objective Objective/Function: MMT: L - seated hip flex 4-/5 some pain in low back, knee ext 4-/5, knee flex 4/5 R - seated hip flex 4-/5, knee ext 4/5, knee flex 4/5 GAIT: step through pattern with SPC, good foot clearance OBERS: (-) PALPATION: point tenderness in low back, no pain over L ITB or hips Pt has made gains in LE strength and has improved pain/tenderness in L ITB. Pt is appropriate to d/c home, evidenced by increased walking tolerance with no LOB, ability to navigate stairs multiple times per day while carrying objects, and still feels challenged by HEP. Plan Plan Plan: Pt to d/c home with HEP, discussed with pt she is able to come back with new script for her back after appointment with . Pt is currently at [facility] and marsha's good understanding with HEP/safety when amb. Balance/Gait/Functional tests Balance/Special Test Scores Lower Extremity Functional Score: 26 Goals Goals Goal 1:: LTG: pt. to be I with HEP. Goal Time Frame: 4-6 Weeks Goal Progress: Goal Met Goal 2:: LTG: Pt. to have negative obers test for both pain and tissue tightness. Goal Time Frame: 4-6 Weeks Goal Progress: Goal Met Goal 3:: LTG: Pt. to ambulate without increase in L leg pain. Goal Time Frame: 4-6 Weeks Goal Progress: Goal Met Goal 4:: STG: Pt. to be able to sit without increase in L leg pain. Goal Time Frame: 2-4 Weeks Goal Progress: Goal Met Goal 5:: LTG: Pt. to complete all household work without increase in symptoms. Goal Time Frame: 4-6 Weeks Goal Progress: Progressing Anticipated Interventions Anticipated Interventions Patient/Client Instruction: Educate patient on: Condition, Plan of Care, Risk Factors and Benefits of Fitness Program For the Purpose of:: To improve decision making, To facilitate caregiver knowledge, To improve self management, To prevent re-injury and To improve ability to perform tasks related to life management Therapeutic Exercise to Include: Strength training, Power training, Endurance training, Postural training, Flexibilty training and Dynamic Lumbar Stabilization For the Purpose of:: To decrease pain, To increase ROM, To improve nutrient delivery to tissue, To increase oxygenation perfusion, To improve muscle performance and motor function, To improve ability to perform ADL's, To improve health of tissue, To decrease soft tissue restriction and To increase flexibility/ROM Cryotherapy (ice pack, ice massage): Yes Thermo therapy (hot pack): Yes Ultrasound (thermal/non thermal): Yes For the Purpose of:: To decrease pain, To increase ROM, To improve nutrient delivery to tissue, To increase oxygenation perfusion and To improve muscle performance and motor function Re-Evaluation Ending Re-evaluation ending: Please do not hesitate to contact me at [phone] by phone or if you have questions or concerns regarding this new plan of care! Sincerely, Atilio Luther DPT
== END 2024-01-02 19:00 | disposition home or self-care (01) ==
LOC: PT 13:00
PROVIDERS: PCP Family Medicine; Referring Provider Anesthesiology; Visit Provider Anesthesiology
DX: M76.32 Iliotibial band syndrome, left leg (principal)
CPT/HCPCS: 97035; 97110; 97140; 97161; 97164; 97530

== ENCOUNTER → 2024-04-26 | Outpatient (CLI) | payer MEDICARE, SELFPAY ==
[2024-04-29 12:09] LABS: QNTFERON TB Mitogen Value > 10.00 IU/mL (.); QNTFERON TB Nil Value 0.01 IU/mL (.); QNTFERON TB1+ Ag Value 0.01 IU/mL (.); QNTFERON TB2+ Ag Value 0.01 IU/mL (.); QNTIFERON TB Positive Criteria Negative (Negative)
== END | disposition home or self-care (01) ==
LOC: MTLAB 13:59
PROVIDERS: PCP Family Medicine; Referring Provider Dermatology Pediatric Dermatology; Visit Provider Dermatology Pediatric Dermatology
DX: L40.0 Psoriasis vulgaris (principal); Z79.899 Other long term (current) drug therapy; L82.1 Other seborrheic keratosis
CPT/HCPCS: 36415; 86480

== ENCOUNTER → 2024-08-05 | Outpatient (CLI) | payer MEDICARE, SELFPAY ==
[2024-08-05 15:18] LABS: Vitamin D,25 Hydroxy 31.4 ng/mL
[2024-08-05 15:26] LABS: ALB/GLOB Ratio 1.1 RATIO (0.9-2.4); AST(SGOT) 32 U/L (15-37); Alanine Aminotransfer ALT/SGPT 45 U/L (13-56); Albumin, Serum 3.8 g/dL (3.2-5.0); Alkaline Phosphatase 58 U/L (45-117); Anion Gap 8 (5-15); BUN 19 mg/dL (7-18); BUN/Creat Ratio 25.3 RATIO (10-20); Chloride 106 mmol/L (98-107); Creatinine, Serum 0.75 mg/dL (0.55-1.02); EST Glomerular Filtration Rate 78 mL/min (>60); Est Glom Filt Rate - Afr Amer 94 mL/min (>60); Globulin 3.5 g/dL (2.2-4.2); Glucose 82 mg/dL (74-106); Potassium 3.7 mmol/L (3.5-5.1); Protein, Total 7.3 g/dL (6.4-8.2); Sodium Level 140 mmol/L (136-145); T4 Free Direct 1.11 ng/dL (0.76-1.46)
== END | disposition home or self-care (01) ==
LOC: LAB 14:14
PROVIDERS: PCP Family Medicine; Referring Provider Internal Medicine Endocrinology, Diabetes & Metabolism; Visit Provider Internal Medicine Endocrinology, Diabetes & Metabolism
DX: E55.9 Vitamin D deficiency, unspecified (principal); M80.00XD Age-related osteoporosis with current pathological fracture, unspecified site, subsequent encounter for fracture with routine healing; E03.9 Hypothyroidism, unspecified
CPT/HCPCS: 36415; 80053; 82306; 84439; 84443

== ENCOUNTER → 2024-11-26 | Outpatient (CLI) | payer MEDICARE, SELFPAY ==
--- NOTE | 2024-11-26 14:26 | RAD_ITS ---
PROCEDURE: Left knee radiographs, four views REASON FOR EXAM: Left knee pain TECHNIQUE: Four views of the left knee were obtained. COMPARISON: None. FINDINGS: Four views of the left knee were obtained. Bones are osteopenic. No acute fracture or dislocation of the left knee. [id number] tricompartmental degenerative changes, greatest involving the medial compartment. There is chondrocalcinosis of the lateral compartment. Trace suprapatellar effusion. RAD/Knee 4 or More Views IMPRESSION: Osteopenia. No acute bony abnormality of the left knee. Moderate/severe tricompartmental degenerative changes of the left knee, greates t involving the medial compartment. Trace suprapatellar effusion. Reading Location: [facility]
== END | disposition home or self-care (01) ==
LOC: RAD 14:25
PROVIDERS: PCP Family Medicine; Referring Provider Anesthesiology; Visit Provider Anesthesiology
DX: M25.562 Pain in left knee (principal)
CPT/HCPCS: 73564

== ENCOUNTER 2025-01-28 09:48 | Observation (INO) | payer MEDICARE, SELFPAY ==
[2025-01-28] VITALS (7 sets, daily range): BP systolic 116–156; BP diastolic 48–77; PULSE 66–81; RESP 14–18; TEMP 36.6–37.1; O2SAT 95–100; BMI 23.3
--- NOTE | 2025-01-28 10:30 | VDLE_ITS ---
Reason For Study Reason For Study: LLE PAIN RIGHT LEFT CFV is compressible, spontaneous, phasic, competent GSV is normal. and demonstrates normal augmentation. CFV is compressible, spontaneous, phasic, competent, Procedure and demonstrates normal augmentation. This is a venous duplex using B-mode, color flow and FV is compressible, spontaneous, phasic, competent spectral Doppler. and demonstrates normal augmentation. Exam performed portable in ED. POP V is compressible, spontaneous, phasic, competent A preliminary report was called and/or faxed to and demonstrates normal augmentation. Ratna @ 11:05 am. T/P Trunk is compressible. PTV is compressible. LT PerV is compressible. VL/Venous Duplex US, Unilateral Interpretation Summary Deep veins of the left lower extremity are patent and compressible segmentally. There is no evidence of left lower extremity deep vein thrombosis. Valvular competence appears intact within the p roximal deep venous system on the left . The left great saphenous vein appears patent and compressible segmentally. The right common femoral vein is patent and compressible . Ordering Physician: Kirby Segundo Referring Physician: Blanco Fishman Performed By: Christine Ivan, JENI, RVT
--- NOTE | 2025-01-28 10:39 | RAD_ITS ---
PROCEDURE: KNEE 4 OR MORE VIEWS (RADKN), 01/28/2025 REASON FOR EXAM: PAIN TECHNIQUE: AP, lateral, AP tunnel view, and sunrise views of the LEFT knee were obtained. COMPARISON: 11/26/2024 FINDINGS: Fracture/dislocation: None visible. Similar well corticated intra-articular suspected loose body measuring roughly 7 x 12 mm best seen in the intercondylar notch on the tunnel view. Joint space(s): Severe loss of medial compartment joint space with subchondral sclerosis and small osteophytes. Chondrocalcinosis as can be seen in CPPD associated arthropathy, hemochromatosis, or hyperparathyroidism. Relatively preserved medial compartment and patellofemoral compartment joint spaces. Small patellofemoral osteophytes present. Soft tissues: Vascular calcifications. Foreign bodies: None visible. Bone mineralization: Demineralization. Other: None. RAD/Knee 4 or More Views IMPRESSION: 1. Demineralization without visible acute displaced fracture. 2. Degenerative findings and additional description as above. Reading Location: [id number]
--- NOTE | 2025-01-28 11:48 | ED.VIS.LOWEX ---
HPI History of Present Illness Chief Complaint: Lower Extremity Injury Informant: patient and spouse/S.O. Narrative Narrative: Brought in by spouse after EMS was contacted from home worsening left knee pain with difficulty ambulating. EMS assisted patient to the car and spouse brought her in. Patient ambulates with a cane at baseline. Patient and spouse getting ready moved to [place] to be closer her daughter has been doing some moving. She has noted reaggravating of her left knee pain. She osteoarthritis of the left knee. She has back issues she sees pain management she is on gabapentin prescribed 4 times a day however states it makes her sleepy so she takes it at night. Symptoms worse over last 3 days she is not using a walker. Today difficult to the moving around therefore brought in by EMS. No direct falls. No fevers. She has been using Tylenol. She does not want anything stronger. She has had cortisone injections to her knee in the past with no relief. [facility] Medical History Back pain Wears glasses Anemia Post-menopausal Anxiety History of shingles Hypothyroidism Kidney stones Psoriasis Ulcer GI bleed Shortness of breath on exertion Non-smoker Tremors of nervous system Injury of back TIA (transient ischemic attack) Vertebral fracture, osteoporotic Compression fracture Asthma GERD (gastroesophageal reflux disease) Home Medications ?Medication ?Instructions ?Recorded ?Last Taken ?Type risankizumab-rzaa 150 mg/1.66 mL 150 mg subcut .COMPLEX 02/11/21 01/22/25 History (75 mg/0.83mL x 2) subcut syringe kit (Camryn) cholecalciferol (vitamin D3) 25 5,000 unit PO DAILY 04/30/21 01/27/25 History mcg (1,000 unit) tablet (Vitamin D3) Prolia 60 mg/mL subcutaneous 60 mg subcut [id number] osteoporosis 06/12/23 07/19/23 Rx syringe (denosumab) #1 mL multivitamin 1 tab PO DAILY 11/27/23 01/27/25 History gabapentin 100 mg capsule 100 mg PO DAILY 05/31/24 01/27/25 History calcium carbonate (Calcium 500) 500 mg PO DAILY 01/28/25 01/27/25 History levothyroxine 88 mcg tablet 88 mcg PO DAILY 01/28/25 01/28/25 History peg 400-propylene glycol (PF) 0.4 1 drp EACH EYE DAILY PRN dry eye(s) 01/28/25 Unknown History %-0.3 % eye drops in a dropperette (Lubricant Eye (PG-PEG 400) (PF)) Allergy/AdvReac Type Severity Reaction Status Date / Time fentanyl Allergy Shortness Verified 01/28/25 09:50 of breath Family History Father CHF (congestive heart failure) CVA (cerebral vascular accident) Paget's disease Surgical History Hx of foot surgery Hx of cholecystectomy Hx of appendectomy Social History Smoking Status: Never smoker ROS ROS ED Constitutional Constitutional ED: Denies chills, fever(s) or sweats Cardiovascular Cardiovascular: Denies chest pain Respiratory/Chest Respiratory/Chest: Denies cough Gastrointestinal Gastrointestinal: Denies diarrhea, nausea or vomiting Musculoskeletal Musculoskeletal: Reports extremity pain; Denies back pain or neck pain Integumentary Denies rash or wounds Neurologic Neurologic: Reports weakness; Denies headache(s) or paresthesias EXAM Physical Exam Const Vital Signs: 01/28/25 09:48 01/28/25 11:48 Temperature 98 F Temperature Source Temporal Pulse Rate 81 Respiratory Rate 14 Blood Pressure 141/68 H 156/56 H Blood Pressure Mean 92 89 Pulse Ox 98 Oxygen Delivery Method Room Air Positive well nourished and well developed General Appearance ED: well developed and NAD HEENT Reports moist mucous membranes normocephalic and atraumatic Eyes General Eye ED: Yes normal appearance of both eyes Neck full ROM Chest Wall Chest: Negative for tenderness Resp normal respiratory effort and normal air movement Effort and Inspection: symmetric chest movement; Negative for respiratory distress Cardio regular rate, regular rhythm and no murmurs Peripheral Pulses: pulses 2+ throughout GI normal to inspection, nondistended, normoactive bowel sounds and non-tender Palpation: Negative for guarding or rebound tenderness present Extremity Extremity Narrative: Left lower extremity: Negative logroll knee extensor kory intact. Negative varus and valgus, positive Wyatt's, no deformities. Tenderness behind the knee. Soft calves. Pulses intact distally. General Extremety ED: Yes tenderness; Negative for edema General Extremity: Negative for edema Neuro oriented x3 and no sensory deficits noted Sensorium / Orientation: awake and alert Skin no rashes or lesions noted and no wounds MDM MDM MDM Narrative Medical decision making narrative: Interventions / MDM: Differential diagnosis: Osteoarthritis left knee, inability to ambulate Diagnosis considered but do not suspect: Fracture x-ray negative. DVT ultrasound negative. No clinical septic joint. My EKG interpretation: N/A Imaging independently reviewed and interpreted by myself: Left knee x-ray 4 views: Severe degenerative changes medial aspect of the left knee no acute fractures. Images also read by radiology. External documents reviewed: N/A Test considered but not ordered:N/A ED course: Patient declining any medications. With pain behind the knee, ultrasound ordered, left knee x-ray ordered. X-ray with osteoarthritic changes left knee. Ultrasound negative. She agreed with dose of Tylenol in the ED. Reevaluation increasing difficulty definitely walking on her walker. I discussed with social work in the ED to evaluate her. 1240: Social work evaluation states she would like to go rehab. She will need to go through the hospital overnight for placement. I ordered for basic labs with IV. I spoke with hospitalist Dr. Akbar for admission. 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 It may contain incorrect words, spelling, and punctuation that were not noted in checking the note before signing. Radiography Diagnostic Testing: Clinical Impression(s) from Imaging Studies Knee X-Ray 01/28/25 10:39 IMPRESSION: 1. Demineralization without visible acute displaced fracture. 2. Degenerative findings and additional description as above. Reading Location: [id number] Discharge Plan Dx/Rx/DC Orders Clinical Impression: Inability to ambulate due to knee, Osteoarthritis of left knee Disposition Disposition: [facility] Discharge Date/Time: 01/28/25 13:18
[2025-01-28] MEDS: Acetaminophen 500 MG Tablet 1000 MG PO (11:58)
--- NOTE | 2025-01-28 12:57 | PCM.HP.STD ---
[facility] - [facility] General Date of Service: 01/28/25 Chief Complaint: Intractable left knee pain [facility] Narrative MAX EASON, is a 89 F with past medical history significant for severe generalized osteoarthritis who presented to the emergency department with intractable left knee pain. Patient also did complain of difficulty with ambulation. Per patient he had been offered intra-articular joint injection previously which did not help. She did states she was not interested in knee replacement given her advanced age. An assessment of adult failure to thrive was made case management contacted from the ED decision was made to admit patient for possible placement in a nursing home facility to continue with rehab [facility] Medical History Back pain Wears glasses Anemia Post-menopausal Anxiety History of shingles Hypothyroidism Kidney stones Psoriasis Ulcer GI bleed Shortness of breath on exertion Non-smoker Tremors of nervous system Injury of back TIA (transient ischemic attack) Vertebral fracture, osteoporotic Compression fracture Asthma GERD (gastroesophageal reflux disease) Home Medications ?Medication ?Instructions ?Recorded ?Last Taken ?Type loratadine 10 mg tablet 10 mg PO QHS allergies 09/22/15 07/19/23 History risankizumab-rzaa 150 mg/1.66 mL mg subcut 02/11/21 07/19/23 History (75 mg/0.83mL x 2) subcut syringe kit (Skyrizi) cholecalciferol (vitamin D3) 25 5,000 unit PO DAILY 04/30/21 Unknown History mcg (1,000 unit) tablet (Vitamin D3) levothyroxine 125 mcg tablet 88 mcg PO DAILY 06/03/21 Unknown History PEP device #1 ea 09/12/22 Unknown Rx Prolia 60 mg/mL subcutaneous 60 mg subcut [id number] osteoporosis 06/12/23 07/19/23 Rx syringe (denosumab) #1 mL ascorbic acid (vitamin C) 500 mg 500 mg PO DAILY 08/18/23 Unknown History capsule,extended release (Vitamin C) calcium 500 mg tablet mg PO DAILY 08/18/23 Unknown History multivitamin 1 tab PO DAILY 11/27/23 Unknown History gabapentin 100 mg capsule mg PO DAILY 05/31/24 Unknown History montelukast 10 mg tablet 10 mg PO QHS 05/31/24 Unknown History Prolia 60 mg/mL subcutaneous 60 mg subcut ONCE #1 mL 08/01/24 Unknown Clinic syringe (denosumab) Allergy/AdvReac Type Severity Reaction Status Date / Time fentanyl Allergy Shortness Verified 01/28/25 09:50 of breath Family History Father CHF (congestive heart failure) CVA (cerebral vascular accident) Paget's disease Surgical History Hx of foot surgery Hx of cholecystectomy Hx of appendectomy Social History Smoking Status: Never smoker ROS ROS Narrative GENERAL: denies fever, chills, night sweats, weight loss, anorexia HEENT: denies headache, sinus congestion, or drainage, dysphagia RESPIRATORY: denies cough, sputum production, shortness of breath, dyspnea on exertion CARDIAC: denies chest pain, palpitations, orthopnea, PND GASTROINTESTINAL: denies abdominal pain, nausea, vomiting, melena, GENITOURINARY: denies dysuria, urgency, frequency, heamaturia EXTREMITY: denies swelling MUSCULOSKELETAL: Intractable left knee pain NEUROLOGIC: denies focal numbness, weakness, tingling HEMATOLOGIC: denies easy bruising and/or hemorrhage INTEGUMENT: denies rashes PSYCHIATRIC: denies suicidal or homicidal ideation Vital Signs Vital Signs Vital Signs: 01/28/25 09:48 01/28/25 11:48 Temperature 98 F Temperature Source Temporal Pulse Rate 81 Respiratory Rate 14 Blood Pressure 141/68 H 156/56 H Blood Pressure Mean 92 89 Pulse Ox 98 Oxygen Delivery Method Room Air Physical Exam Narrative GENERAL: cooperative HEENT: Atraumatic; normocephalic EYES; Anicteric, Normal Conjunctiva NECK; supple, normal thyroid, RESPIRATORY: Diminished to auscultation CARDIOVASCULAR: Regular S1 S2, GI: soft, normoactive bowel sounds, : No Renal angle tenderness; EXTREMITIES: No edema, no clubbing, MUSCULOSKELETAL: No joint swelling NEURO: Awake; no lateralizing signs. SKIN: No Rash PSYCH; Flat affect Results Imaging Radiology Impression Knee X-Ray 01/28/25 10:39 IMPRESSION: 1. Demineralization without visible acute displaced fracture. 2. Degenerative findings and additional description as above. 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 Qualified Code(s): E06.3 - Autoimmune thyroiditis (3) Asthma: QUALIFIERS: Asthma complication type: uncomplicated Asthma persistence: intermittent Asthma severity: mild Qualified Code(s): J45.20 - Mild intermittent asthma, uncomplicated (4) Osteoporosis: QUALIFIERS: Encounter type: subsequent encounter Fracture healing: with routine healing Osteoporosis type: age-related Presence of current pathological fracture: with current pathological fracture Qualified Code(s): M80.00XD - Age-related osteoporosis with current pathological fracture, unspecified site, subsequent encounter for fracture with routine healing PLAN: Plan Patient is an 89-year-old lady admitted with adult failure to thrive 1. Physical deconditioning secondary to severe generalized osteoarthritis ? Requested for PT OT eval and certified social workers in health care to assist with discharge planning 2. Intractable left knee pain ? Secondary to severe generalized osteoarthritis admitted for pain management 3. Osteoporosis ? Patient is on denosumab as outpatient plan is to resume care following discharge 4. Hypothyroidism ? Patient is on levothyroxine did continue also requested for TSH level 5. Mild intermittent asthma ? Currently not in exacerbation aerosol treatment as needed 6. Elevated blood pressure ? Patient is not a known hypertensive pain may be contributing to her elevated blood pressure plan is to optimize patient pain management. Also ordered hydralazine for systolic blood pressure greater than 160 7. DVT prophylaxis ? On enoxaparin Advance planning; did discuss with the patient and family (patient ) regarding advanced directives as well as CODE STATUS. Did explain the various scenarios involved ( FULL CODE, DNR CCA, DNR CCA with no intubation, and DNR CC and what each meant) patient elected to be DNR CCA no intubation. Order was placed. Time spent on discussion 16 minutes. Charges/Coding Multi Select Codes Visit Charges Visit Charges: 08795 Init Hosp L2 Hospitalists' Procedures Procedures: 20341 Advncd Care Plan 30 Min
--- NOTE | 2025-01-28 13:14 | CHAPLAIN ---
Type of Pastoral Visit _x__ Initial Visit ___ Follow-up Visit ___ On-call Visit ___ General Patient Visit ___ Spiritual Assessment ___ Family Conference ___ Bereavement ___ Rapid Response ___ Code Blue ___ Other (describe below) Pastoral Care Referral From _x__ Patient ___ Family ___ Nurse ___ Physician ___ Barrel Repairer ___ Chief Hospital Administrator ___ Other (describe below) Sacrament/Intervention _x__ Active listening ___ Anointing ___ Restorationist ___ Bereavement ___ Communion ___ Micaela exploration ___ _x__ Life review _x__ Prayer ___ Reconciliation ___ Sacrament of Sick _x__ Supportive presence ___ Wedding ___ Other (describe below) Pastoral Comments met with patient and spouse; pt explains the pain and situation that brought her to the hospital; pt is in the process of selling home, belongings, etc. in order to move with her close to family out of this area; pt has feelings of overwhelm at all that has to be done now; pt reviews other life experiences when the Lord helped and led her through it; affirmed micaela of patient and offered prayer and presence
[2025-01-28 13:26] LABS: Absolute Lymphocyte Count 1.28 X10^3/uL (0.83-4.51); Absolute Neutrophil Count 1.5 X10^3/uL (2.0-7.7); Basophil# 0.07 X10^3/uL; Eosinophil# 0.17 X10^3/uL; Eosinophils% 4.8 % (0-5); Hematocrit 35.5 % (37-47); Lymphocyte # 1.28 X10^3/ul (0.83-4.51); Lymphocyte % 36.1 % (19-41); Mean Corp Hgb Conc 33.8 g/dL (32-36); Mean Corpuscular Hgb 33.4 pg (27.0-32.0); Mean Corpuscular Volume 98.9 fL (81-99); Mean Platelet Vol. 9.6 fl (6.2-12.0); Monocyte# 0.56 X10^3/uL; Monocyte% 15.8 % (0-10); NRBC Flagged by Analyzer 0 % (0-5); Neutrophil # 1.47 X10^3/uL (2.7-7.7); Neutrophil % 41.3 % (47-70); Platelet Count 223 K/mm3 (150-450); RBC Distribution Width CV 13.7 % (11.6-14.6); RBC Distribution Width SD 49.8 fl (35.1-43.9); Red Blood Count 3.59 M/mm3 (4.2-5.4); White Blood Count 3.6 K/mm3 (4.4-11.0)
[2025-01-28 13:55] LABS: Anion Gap 12 (5-15); BUN 11 mg/dL (4-19); BUN/Creat Ratio 24.2 RATIO (10-20); Calcium,Total 9.1 mg/dL (7.6-11.0); Carbon Dioxide 21.9 mmol/L (21.0-32.0); Chloride 107 mmol/L (98-108); Creatinine, Serum 0.45 mg/dL (0.70-1.20); EST Glomerular Filtration Rate 93 (>60); Glucose 83 mg/dL (70-99); Potassium 3.6 mmol/L (3.3-5.1); Sodium Level 141 mmol/L (133-145)
--- NOTE | 2025-01-28 15:15 | CASEMGMT ---
Discharge Planning A list of SNF providers including quality and resource use data and consistent with the patient's preferred geographic region, medical needs, and insurance network was created in [facility] Guide.? This list was provided to the SW. Nadine Bernal Discharge Planning Asst.
[2025-01-28] MEDS: Acetaminophen 325 MG Tablet 650 MG PO (21:25)
[2025-01-28] MEDS: Gabapentin 100 MG Capsule PO (21:25)
--- NOTE | 2025-01-28 21:26 | CM.ED ---
Social Work SW met with patient and patients . Patient explained that while she normally lives with pain, she has been able to care for self. However, over the last several days her knee and back pain have gotten so severe she is having trouble caring for herself. Patient and feel that a short term rehab stay would be beneficial to get patient back to her baseline. Patient and state that [facility] would be their first choice. Stacie Lorenz, BASKET WEAVER, COMMUNICATION INSTRUCTOR
[2025-01-29 02:37] LABS: Bacteria 0 SEEN /hpf (None Seen); Mucous, Urine 0 SEEN /hpf (<or=2+); Red Blood Cells-Urine 0 SEEN /hpf (0-5); Squamous Epithelial Cells - UA 0 SEEN /hpf (5-10); White Blood Cells 0 SEEN /hpf (0-5)
[2025-01-29 02:40] VITALS: BP 106/47; PULSE 82; RESP 16; TEMP 36.6; O2SAT 96
[2025-01-29 02:41] LABS: Color, Urine Yellow (Yellow); Glucose, Dipstick Normal (Normal); Ketone-Dipstick Negative (Negative); Leukocyte Esterase-Dipstick Negative /ul (Negative); Nitrite-Dipstick Negative (Negative); Occult Blood-Urine Negative /ul (Negative); Protein-Dipstick 15 mg/dl (Negative); Specific Gravity, Urine 1.015 (1.002-1.030); Urine Bilirubin Dipstick Negative (Negative); Urine Clarity Clear (Clear); Urine Urobilinogen Normal (Normal); Urine pH 6.5 (5.0 - 8.0)
[2025-01-29] MEDS: Levothyroxine 88 MCG Tablet PO (06:21)
--- NOTE | 2025-01-29 07:23 | PN.HOSP_ITS ---
Reason for Visit Reason for Visit: Diagnoses Autoimmune thyroiditis (01/28/25) Mild intermittent asthma, uncomplicated (01/28/25) Unilateral primary osteoarthritis, left knee (01/28/25) Age-related osteoporosis with current pathological fracture, unspecified site, subsequent encounter for fracture with routine healing (01/28/25) Subjective Subjective Patient seen for complaints of pain. Per patient she had a restless night due to noise in the bed being hard. Awaiting case management eval prior to patient being discharged to care home facility Objective Data Objective Data Vital Signs: Vital Signs Temp Pulse Resp BP Pulse Ox O2 Del Method 97.8 F 82 16 106/47 L 96 Room Air 01/29/25 02:40 01/29/25 02:40 01/29/25 02:40 01/29/25 02:40 01/29/25 02:40 01/29/25 02:40 Oxygen Delivery Method Room Air Weight: 52.305 kg Body Mass Index (BMI) 23.3 Intake & Output: Intake and Output for Last 24 Hours 01/27/25 01/28/25 01/29/25 23:59 23:59 23:59 Intake Total 50 / 50 Output Total 300 / 300 Balance 50 / 50 -300 / -300 Lab / Micro Data 01/28/25 13:00 01/28/25 13:00 Labs: Laboratory Results - last 24 hr 01/28/25 02:30: Urine Color Yellow, Urine Clarity Clear, Urine pH 6.5, Ur Specific Cer[place] 1.015, Urine Protein 15 H, Urine Glucose (UA) Normal, Urine Ketones Negative, Urine Occult Blood Negative, Urine Nitrite Negative, Urine Bilirubin Negative, Urine Urobilinogen Normal, Ur Leukocyte Esterase Negative, Urine RBC 0 SEEN, Urine WBC 0 SEEN, Ur Squamous Epith Cells 0 SEEN, Urine Bacteria 0 SEEN, Urine Mucus 0 SEEN 01/28/25 13:00: WBC 3.6 L, RBC 3.59 L, Hgb 12.0, Hct 35.5 L, MCV 98.9, MCH 33.4 H, MCHC 33.8, RDW Std Deviation 49.8 H, RDW Coeff of Mehrdad 13.7, Plt Count 223, MPV 9.6, Immature Gran % (Auto) 0.000, Neut % (Auto) 41.3 L, Lymph % (Auto) 36.1, Meigs % (Auto) 15.8 H, Eos % (Auto) 4.8, Baso % (Auto) 2.0 H, Absolute Neuts (auto) 1.5 L, Absolute Lymphs (auto) 1.28, Nucleated RBC % 0, Sodium 141, Potassium 3.6, Chloride 107, Carbon Dioxide 21.9, Anion Gap 12, BUN 11, C reatinine 0.45 L, Est GFR (MDRD) Non-Af 93, BUN/Creatinine Ratio 24.2 H, Glucose 83, Calcium 9.1, Magnesium 2.0 Radiography Diagnostic Testing: Radiology Impression Venous Doppler Study 01/28/25 10:30 Interpretation Summary Deep veins of the left lower extremity are patent and compressible segmentally. There is no evidence of left lower extremity deep vein thrombosis. Valvular competence appears intact within the proximal deep venous system on the left . The left great saphenous vein appears patent and compressible segmentally. The right common femoral vein is patent and compressible . Ordering Physician: Kirby Segundo Referring Physician: Blanco Fishman Performed By: Christine Ivan, RDCS, RVT Knee X-Ray 01/28/25 10:39 IMPRESSION: 1. Demineralization without visible acute displaced fracture. 2. Degenerative findings and additional description as above. Reading Location: [facility] Physical Exam Narrative GENERAL: cooperative HEENT: Atraumatic; normocephalic EYES; Anicteric, Normal Conjunctiva NECK; supple, normal thyroid, RESPIRATORY: Diminished to auscultation CARDIOVASCULAR: Regular S1 S2, GI: soft, normoactive bowel sounds, : No Renal angle tenderness; EXTREMITIES: No edema, no clubbing, MUSCULOSKELETAL: No joint swelling NEURO: Awake; no lateralizing signs. 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 Q ualified Code(s): E06.3 - Autoimmune thyroiditis (3) Asthma: QUALIFIERS: Asthma complication type: uncomplicated Asthma persistence: intermittent Asthma severity: mild Qualified Code(s): J45.20 - Mild intermittent asthma, uncomplicated (4) Osteoporosis: QUALIFIERS: Encounter type: subsequent encounter Fracture healing: with routine healing Osteoporosis type: age-related Presence of current pathological fracture: with current pathological fracture Qualified Code(s): M80.00XD - Age-related osteoporosis with current pathological fracture, unspecified site, subsequent encounter for fracture with routine healing PLAN: Plan Patient is an 89-year-old lady admitted with adult failure to thrive 1. Physical deconditioning secondary to severe generalized osteoarthritis ? Requested for PT OT eval and social media specialist to assist with discharge planning ? 01/29/2025; evaluation. Case management pending 2. Intractable left knee pain ? Secondary to severe generalized osteoarthritis admitted for pain management 3. Osteoporosis ? Patient is on denosumab as outpatient plan is to resume care following discharge 4. Hypothyroidism ? Patient is on levothyroxine did continue also requested for TSH level 5. Mild intermittent asthma ? Currently not in exacerbation aerosol treatment as needed 6. Elevated blood pressure ? Patient is not a known hypertensive pain may be contributing to her elevated blood pressure plan is to optimize patient pain management. Also ordered hydralazine for systolic blood pressure greater than 160 ? 01/29/2025; patient blood pressure has stabilized following adequate pain management 7. DVT prophylaxis ? On enoxaparin Time spent in the patient's overall evaluation,decision-making process, review of diagnostic data, adjustment of management, discussion with other providers, nursing nursing and ancillary staff involved in patient's care documentation, 38 minutes Charges/Coding Visit Charges Inpatient E&M: 71257 Subs Hosp L2
[2025-01-29 07:27] VITALS: O2SAT 98
[2025-01-29 08:15] VITALS: BP 110/51; PULSE 82; RESP 18; TEMP 36.7; O2SAT 96
[2025-01-29 08:16] VITALS: PULSE 82
[2025-01-29] MEDS: Enoxaparin 40 MG/0.4 ML Syringe SC (12:47)
[2025-01-29] MEDS: Acetaminophen 500 MG Tablet 1000 MG PO ×2 (12:48→21:13)
--- NOTE | 2025-01-29 13:47 | CASEMGMT ---
Social Work- SW met with pt and spouse to discuss discharge planning. SW introduced self and role; pt agreeable to meeting. Pt reports that she feels that she did well with therapy and would like to return home. Pt spouse in agreement with pt, reporting that when pt was admitted, she was unable to walk at all. SW questioned pt what she feels like has made a significant difference in ambulation; pt reports rest and therapist giving her pointers with her knee. SW inquired into pt entrance. Pt reports that she has 4 stairs, a landing, and 3 stairs to enter the home from the garage, railing along steps. Pt reports that she did a step up with therapy today. Pt reports that the step she did with therapy is much taller than the stairs at her home. SW called therapy to request practice with shallow stairs prior to discharge. Therapy to retest stairs to simulate entrance into home tomorrow morning. Physician agreeable to plan. SW provided education on HHC; pt and spouse agreeable to HHC if pt discharges home. DCA notified. FAIZA remains available to follow. RAQUEL Bah
--- NOTE | 2025-01-29 14:18 | CHAPLAIN ---
Type of Pastoral Visit ___ Initial Visit _x__ Follow-up Visit ___ On-call Visit ___ General Patient Visit ___ Spiritual Assessment ___ Family Conference ___ Bereavement ___ Rapid Response ___ Code Blue ___ Other (describe below) Pastoral Care Referral From _x__ Patient ___ Family ___ Nurse ___ Physician ___ Melting Operator ___ Shank Maker ___ Other (describe below) Sacrament/Intervention _x__ Active listening ___ Anointing ___ Adventism ___ Bereavement ___ Communion _x__ Micaela exploration ___ _x__ Life review _x__ Prayer ___ Reconciliation ___ Sacrament of Sick ___ Supportive presence ___ Wedding ___ Other (describe below) Pastoral Comments this small boat engineer talked with spouse and gave support as patient was finishing up her therapy session; pt returns to room and enters into the discussion; pt and spouse are moving and they have much to do to downsize their home and belongings; pt has physical limitations and this is a concern for their move and future; both are strong in their micaela and welcome spiritual care support; immediate concern and decision is about getting rehab time and hope for improvements enough to manage well at home; prayer and presence given
[2025-01-29 14:45] VITALS: BP 111/55; PULSE 83; RESP 16; TEMP 36.6; O2SAT 97
--- NOTE | 2025-01-29 14:50 | CASEMGMT ---
Discharge Planning Referral sent to [facility]. [facility] declined. SW updated. Nadine Bernal DC Planning Asst.
--- NOTE | 2025-01-29 15:41 | CASEMGMT ---
Met with patient to complete AHMADI form. AHMADI form explained to patient who voiced understanding and signed form. Original form placed in pt?s chart and copy provided to patient. Nadine Bernal, Discharge Planning Asst
[2025-01-29 20:31] VITALS: BP 130/69; PULSE 80; RESP 16; TEMP 36.5; O2SAT 96
[2025-01-29] MEDS: Gabapentin 100 MG Capsule PO (21:13)
[2025-01-30 02:04] VITALS: BP 130/62; PULSE 63; RESP 16; TEMP 36.5; O2SAT 97
[2025-01-30 02:30] VITALS: BP 130/62; PULSE 63; RESP 16; TEMP 36.7; O2SAT 96
[2025-01-30] MEDS: Levothyroxine 88 MCG Tablet PO (05:32)
[2025-01-30] MEDS: Acetaminophen 500 MG Tablet 1000 MG PO ×2 (05:35→15:23)
[2025-01-30 07:12] VITALS: O2SAT 96
[2025-01-30 08:00] VITALS: BP 121/63; PULSE 58; RESP 15; TEMP 36.3; O2SAT 98
[2025-01-30] MEDS: Enoxaparin 40 MG/0.4 ML Syringe SC (08:07)
--- NOTE | 2025-01-30 08:19 | PCM.DC.SUM ---
Providers Date of Admission: 01/28/25 Primary Care Physician: Dr. 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 Qualified Code(s): E06.3 - Autoimmune thyroiditis (3) Asthma: Status: Chronic Code(s): J45.909 - Unspecified asthma, uncomplicated Qualifiers: Asthma severity: mild Asthma persistence: intermittent Asthma complication type: uncomplicated Qualified Code(s): J45.20 - Mild intermittent asthma, uncomplicated (4) Osteoporosis: Status: Chronic Code(s): M81.0 - Age-related osteoporosis without current pathological fracture Qualifiers: Osteoporosis type: age-related Presence of current pathological fracture: with current pathological fracture Encounter type: subsequent encounter Fracture healing: with routine healing Qualified Code(s): M80.00XD - Age-related osteoporosis with current pathological fracture, unspecified site, subsequent encounter for fracture with routine healing Plan Patient is an 89-year-old lady admitted with adult failure to thrive 1. Physical deconditioning secondary to severe generalized osteoarthritis ? Requested for PT OT eval and social media community manager to assist with discharge planning ? 01/29/2025; evaluation. Case management pending 2. Intractable left knee pain ? Secondary to severe generalized osteoarthritis admitted for pain management 3. Osteoporosis ? Patient is on denosumab as outpatient plan is to resume care following discharge 4. Hypothyroidism ? Patient is on levothyroxine did continue also requested for TSH level 5. Mild intermittent asthma ? Currently not in exacerbation aerosol treatment as needed 6. Elevated blood pressure ? Patient is not a known hypertensive pain may be contributing to her elevated blood pressure plan is to optimize patient pain management. Also ordered hydralazine for systolic blood pressure greater than 160 ? 01/29/2025; patient blood pressure has stabilized following adequate pain management 7. DVT prophylaxis ? On enoxaparin Time spent in the patient's overall evaluation,decision-making process, review of diagnostic data, adjustment of management, discussion with other providers, nursing nursing and ancillary staff involved in patient's care documentation, 38 minutes Medications at Discharge Home Medications risankizumab-rzaa 150 mg/1.66 mL (75 mg/0.83mL x 2) subcut syringe kit (Skyrizi) 150 mg subcut .COMPLEX 02/11/21 cholecalciferol (vitamin D3) 25 mcg (1,000 unit) tablet (Vitamin D3) 5,000 unit PO DAILY 04/30/21 Prolia 60 mg/mL subcutaneous syringe (denosumab) 60 mg subcut [id number] osteoporosis #1 mL 06/12/23 multivitamin 1 tab PO DAILY 11/27/23 gabapentin 100 mg capsule 100 mg PO DAILY 05/31/24 calcium carbonate (Calcium 500) 500 mg PO DAILY 01/28/25 levothyroxine 88 mcg tablet 88 mcg PO DAILY 01/28/25 peg 400-propylene glycol (PF) 0.4 %-0.3 % eye drops in a dropperette (Lubricant Eye (PG-PEG 400) (PF)) 1 drp EACH EYE DAILY PRN dry eye(s) 01/28/25 Physical Exam Narrative GENERAL: cooperative HEENT: Atraumatic; normocephalic EYES; Anicteric, Normal Conjunctiva NECK; supple, normal thyroid, RESPIRATORY: Diminished to auscultation CARDIOVASCULAR: Regular S1 S2, GI: soft, normoactive bowel sounds, : No Renal angle tenderness; EXTREMITIES: No edema, no clubbing, MUSCULOSKELETAL: No joint swelling NEURO: Awake; no lateralizing signs. SKIN: No Rash PSYCH; Flat affect Weight / BMI Weight Weight: 52.305 kg Body Mass Index (BMI) 23.3 ABG / Lab / Microbiology Data 01/28/25 13:00 01/28/25 13:00 Meaningful Use Info Ischemic Stroke Statin Dosing Therapy Reference: STATIN DOSE THERAPY REFERENCE: * Patients > 75 years receive moderate or high dose statin therapy. * Patients 75 years or YOUNGER should receive HIGH intensity statin dose unless contraindicated. You will be required to document reason for non-treatment if statin daily dose does not meet guidelines. HIGH DOSE STATIN THERAPY DAILY Atorvastatin > than or = to 40 mg Rosuvastatin > than or = to 20 mg Amlodipine + Atorvastatin > than or = to 2.5/40 mg Ezetimibe + Simvastatin 10/80 mg Simvastatin 80mg Discharge Plan Admission Admit Date/Time: 01/28/25 12:39 Attending Provider: Roney Akbar Primary Care Provider: Balnco Fishman Discharge Orders/Prescriptions Prescriptions: No Action Prolia 60 mg/mL syringe 60 mg SC [id number] Qty: 1 1RF Patient Comments: PT WAS SUPPOSDE TO TAKE TODAY multivitamin Tablet 1 tab PO DAILY gabapentin 100 mg capsule 100 mg PO DAILY Patient Comments: PT TAKES AT BEDTIME Skyrizi 150mg/1.66mL(75 mg/0.83 mL x2) Syringe Kit 150 mg SUBCUT .COMPLEX Rx Instructions: 150 mg subcutaneously EVERY 3 MONTHS; cholecalciferol (vitamin D3) [Vitamin D3] 25 mcg (1,000 unit) tablet 5,000 unit PO DAILY levothyroxine 88 mcg tablet 88 mcg PO DAILY Rx Instructions: TAKE 1 TABLET ON MONDAY, MONDAY, MONDAY, MONDAY, MONDAY, AND MONDAY. TAKE 1 AND 1/2 TABLETS ON MONDAY. Lubricant Eye (PG-PEG 400)(PF) 0.4-0.3 % dropperette 1 drp EACH EYE DAILY PRN (Reason: dry eye(s)) calcium carbonate [Calcium 500] 500 mg calcium (1,250 mg) tablet,chewable 500 mg PO DAILY Referrals / Follow Up: Blanco Fishman MD [Primary Care Provider] -
--- NOTE | 2025-01-30 09:05 | PCM.PN.HOSP ---
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 Patient is scheduled to undergo further PT assessment prior to making a decision regarding her disposition Objective Data Objective Data Vital Signs: Vital Signs Temp Pulse Resp BP Pulse Ox O2 Del Method 97.3 F L 58 L 15 121/63 H 98 Room Air 01/30/25 08:00 01/30/25 08:00 01/30/25 08:00 01/30/25 08:00 01/30/25 08:00 01/30/25 08:00 Oxygen Delivery Method Room Air Weight: 52.305 kg Body Mass Index (BMI) 23.3 Intake & Output: Intake and Output for Last 24 Hours 01/28/25 01/29/25 01/30/25 23:59 23:59 23:59 Intake Total 50 / 50 500 / 500 Output Total 300 / 300 Balance 50 / 50 200 / 200 Lab / Micro Data 01/28/25 13:00 01/28/25 13:00 Physical Exam Narrative GENERAL: cooperative HEENT: Atraumatic; normocephalic EYES; Anicteric, Normal Conjunctiva NECK; supple, normal thyroid, RESPIRATORY: Diminished to auscultation CARDIOVASCULAR: Regular S1 S2, GI: soft, normoactive bowel sounds, : No Renal angle tenderness; EXTREMITIES: No edema, no clubbing, MUSCULOSKELETAL: No joint swelling NEURO: Awake; no lateralizing signs. 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 Qualified Code(s): E06.3 - Autoimmune thyroiditis (3) Asthma: QUALIFIERS: Asthma severity: mild Asthma persistence: intermittent Asthma complication type: uncomplicated Qualified Code(s): J45.20 - Mild intermittent asthma, uncomplicated (4) Osteoporosis: QUALIFIERS: Osteoporosis type: age-related Presence of current pathological fracture: with current pathological fracture Encounter type: subsequent encounter Fracture healing: with routine healing Qualified Code(s): M80.00XD - Age-related osteoporosis with current pathological fracture, unspecified site, subsequent encounter for fracture with routine healing PLAN: Plan Patient is an 89-year-old lady admitted with adult failure to thrive 1. Physical deconditioning secondary to severe generalized osteoarthritis ? Requested for PT OT eval and director of social services to assist with discharge planning ? 01/29/2025; evaluation. Case management pending - 01/30/2025 patient seen complaining of bilateral shoulder pain. Patient is scheduled to undergo further PT assessment prior to making a decision regarding her disposition?Home health PT versus assisted. 2. Intractable left knee pain ? Secondary to severe generalized osteoarthritis admitted for pain management 3. Osteoporosis ? Patient is on denosumab as outpatient plan is to resume care following discharge 4. Hypothyroidism ? Patient is on levothyroxine did continue also requested for TSH level 5. Mild intermittent asthma ? Currently not in exacerbation aerosol treatment as needed 6. Elevated blood pressure ? Patient is not a known hypertensive pain may be contributing to her elevated blood pressure plan is to optimize patient pain management. Also ordered hydralazine for systolic blood pressure greater than 160 ? 01/29/2025; patient blood pressure has stabilized following adequate pain management 7. DVT prophylaxis ? On enoxaparin Time spent in the patient's overall evaluation,decision-making process, review of diagnostic data, adjustment of management, discussion with other providers, nursing nursing and ancillary staff involved in patient's care documentation, 36 minutes Charges/Coding Visit Charges Inpatient E&M: 80695 Subs Hosp L2
--- NOTE | 2025-01-30 11:06 | CASEMGMT ---
Addendum entered by Nadine Bernal 01/30/25 11:59: Referral made to [facility]. They declined. Nadine Bernal DC Planning Asst. Original Note: Discharge Planning A list of?HH providers including quality and resource use data and consistent with the patient's preferred geographic region, medical needs, and insurance network was created in [facility] Guide.? This list was provided to the RN CM. Nadine Bernal, Discharge Planning Asst.
--- NOTE | 2025-01-30 11:26 | PCM.DC.SUM ---
Providers Date of Admission: 01/28/25 Date of Discharge: 01/30/25 Primary Care Physician: Dr. 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 Qualified Code(s): E06.3 - Autoimmune thyroiditis (3) Asthma: Status: Chronic Code(s): J45.909 - Unspecified asthma, uncomplicated Qualifiers: Asthma severity: mild Asthma persistence: intermittent Asthma complication type: uncomplicated Qualified Code(s): J45.20 - Mild intermittent asthma, uncomplicated (4) Osteoporosis: Status: Chronic Code(s): M81.0 - Age-related osteoporosis without current pathological fracture Qualifiers: Osteoporosis type: age-related Presence of current pathological fracture: with current pathological fracture Encounter type: subsequent encounter Fracture healing: with routine healing Qualified Code(s): M80.00XD - Age-related osteoporosis with current pathological fracture, unspecified site, subsequent encounter for fracture with routine healing Plan Patient is an 89-year-old lady admitted with adult failure to thrive 1. Physical deconditioning secondary to severe generalized osteoarthritis ? Requested for PT OT eval and social science teacher to assist with discharge planning ? 01/29/2025; evaluation. Case management pending - 01/30/2025 patient seen complaining of bilateral shoulder pain. Patient is scheduled to undergo further PT assessment prior to making a decision regarding her disposition?Home health PT versus penitentiary.. Patient was deemed safe to be discharged home with home health after assessment by PT 2. Intractable left knee pain ? Secondary to severe generalized osteoarthritis admitted for pain management 3. Osteoporosis ? Patient is on denosumab as outpatient plan is to resume care following discharge 4. Hypothyroidism ? Patient is on levothyroxine did continue also requested for TSH level 5. Mild intermittent asthma ? Currently not in exacerbation aerosol treatment as needed 6. Elevated blood pressure ? Patient is not a known hypertensive pain may be contributing to her elevated blood pressure plan is to optimize patient pain management. Also ordered hydralazine for systolic blood pressure greater than 160 ? 01/29/2025; patient blood pressure has stabilized following adequate pain management 7. DVT prophylaxis ? On enoxaparin Time spent in the patient's overall evaluation,decision-making process, review of diagnostic data, adjustment of management, discussion with other providers, nursing nursing and ancillary staff involved in patient's care documentation, 36 minutes Medications at Discharge Home Medications risankizumab-rzaa 150 mg/1.66 mL (75 mg/0.83mL x 2) subcut syringe kit (Skyrizi) 150 mg subcut .COMPLEX 02/11/21 cholecalciferol (vitamin D3) 25 mcg (1,000 unit) tablet (Vitamin D3) 5,000 unit PO DAILY 04/30/21 Prolia 60 mg/mL subcutaneous syringe (denosumab) 60 mg subcut [id number] osteoporosis #1 mL 06/12/23 multivitamin 1 tab PO DAILY 11/27/23 gabapentin 100 mg capsule 100 mg PO DAILY 05/31/24 calcium carbonate (Calcium 500) 500 mg PO DAILY 01/28/25 levothyroxine 88 mcg tablet 88 mcg PO DAILY 01/28/25 peg 400-propylene glycol (PF) 0.4 %-0.3 % eye drops in a dropperette (Lubricant Eye (PG-PEG 400) (PF)) 1 drp EACH EYE DAILY PRN dry eye(s) 01/28/25 Physical Exam Narrative GENERAL: cooperative HEENT: Atraumatic; normocephalic EYES; Anicteric, Normal Conjunctiva NECK; supple, normal thyroid, RESPIRATORY: Diminished to auscultation CARDIOVASCULAR: Regular S1 S2, GI: soft, normoactive bowel sounds, : No Renal angle tenderness; EXTREMITIES: No edema, no clubbing, MUSCULOSKELETAL: No joint swelling NEURO: Awake; no lateralizing signs. SKIN: No Rash PSYCH; Flat affect Weight / BMI Weight Weight: 52.305 kg Body Mass Index (BMI) 23.3 ABG / Lab / Microbiology Data 01/28/25 13:00 01/28/25 13:00 D/C Instructions Discharge Diet: No restrictions Discharge Activity: Return to Normal Activity Call your doctor if you observe: Fever of 101 or Higher, Shortness of breath, Fainting spells and Chest pain DC O2, CPAP, BIPAP Needs Home O2 Discharge instructions: No Meaningful Use Info Meaningful Use Meaningful Use Diagnoses (Choose all that apply): None applicable Ischemic Stroke Statin Dosing Therapy Reference: STATIN DOSE THERAPY REFERENCE: * Patients > 75 years receive moderate or high dose statin therapy. * Patients 75 years or YOUNGER should receive HIGH intensity statin dose unless contraindicated. You will be required to document reason for non-treatment if statin daily dose does not meet guidelines. HIGH DOSE STATIN THERAPY DAILY Atorvastatin > than or = to 40 mg Rosuvastatin > than or = to 20 mg Amlodipine + Atorvastatin > than or = to 2.5/40 mg Ezetimibe + Simvastatin 10/80 mg Simvastatin 80mg Discharge Plan Admission Admit Date/Time: 01/28/25 12:39 Attending Provider: Roney Akbar Primary Care Provider: Blanco Fishman Discharge Orders/Prescriptions Prescriptions: Continued Prolia 60 mg/mL syringe 60 mg SC [id number] Qty: 1 1RF Patient Comments: PT WAS SUPPOSDE TO TAKE TODAY multivitamin Tablet 1 tab PO DAILY gabapentin 100 mg capsule 100 mg PO DAILY Patient Comments: PT TAKES AT BEDTIME Skyrizi 150mg/1.66mL(75 mg/0.83 mL x2) Syringe Kit 150 mg SUBCUT .COMPLEX Rx Instructions: 150 mg subcutaneously EVERY 3 MONTHS; cholecalciferol (vitamin D3) [Vitamin D3] 25 mcg (1,000 unit) tablet 5,000 unit PO DAILY levothyroxine 88 mcg tablet 88 mcg PO DAILY Rx Instructions: TAKE 1 TABLET ON MONDAY, MONDAY, MONDAY, MONDAY, MONDAY, AND MONDAY. TAKE 1 AND 1/2 TABLETS ON MONDAY. Lubricant Eye (PG-PEG 400)(PF) 0.4-0.3 % dropperette 1 drp EACH EYE DAILY PRN (Reason: dry eye(s)) calcium carbonate [Calcium 500] 500 mg calcium (1,250 mg) tablet,chewable 500 mg PO DAILY Referrals / Follow Up: Blanco Fishman MD [Primary Care Provider] - Within 1 Week Disposition Disposition (needs filled in before D/C Order can be placed): Home Health Service Charges/Coding Visit Charges Inpatient E&M: 21041 Disch Hosp >30min
--- NOTE | 2025-01-30 11:50 | CASEMGMT ---
Addendum entered by Kamille Kee 01/30/25 12:24: DYLLAN BECKHAM into pt room, pt aware that [facility] can see her in her home and will be in touch with her to set up a time. Pt states she is in the process of moving with her to outside of [place]. She states she will be moving into her grandson's home when he gets . She will be living right beside her granddtr and her dtr is approx 7 miles away. Pt states she was doing things at home preparing for the move that she does not normally do. Discussed the disciplines who will be out to see her, pt verbalized understanding. Pt has a cane, walker and shower chair at home. Pt denies any further homegoing needs. Addendum entered by Kamille Kee 01/30/25 12:09: [facility] has accepted pt. DC summary attached and sent via [employer] at this time. Original Note: Notified by that pt would like [facility] upon dc. Pt chooses 1. [facility] 2. [facility]. Requested dc household assistant send referral at this time.
--- NOTE | 2025-01-30 11:55 | CASEMGMT ---
Addendum entered by Nadine Bernal 01/30/25 12:20: [facility] accepted. Discharge summary sent. DYLLAN CM updated. Nadine Bernal DC Planning Asst. Original Note: Discharge Planning referral sent to [facility]. Nadine Bernal DC Planning Asst.
--- NOTE | 2025-01-30 12:04 | CASEMGMT ---
Social Work- SW met with pt and pt spouse to discuss discharge planning. Pt was able to complete 8 steps with therapy and feels confident returning home. Pt is interested in HHC. A list of HHC providers including quality and resource use data and consistent with the patient?s preferred geographic region, medical needs, and insurance network were provided from the [facility]Port Guide. [facility] with [facility] as alternate. FAIZA updated RNCM. RAQUEL Bah
[2025-01-30 15:25] VITALS: BP 128/60; PULSE 90; RESP 15; TEMP 36.8; O2SAT 99
== END 2025-01-30 16:17 | disposition home health service (06) ==
LOC: ED 12:38 → MS3 13:10
PROVIDERS: Admitting Provider Internal Medicine; Emergency Provider Emergency Medicine; PCP Family Medicine; Visit Provider Internal Medicine
DX: M17.12 Unilateral primary osteoarthritis, left knee (principal); E03.9 Hypothyroidism, unspecified; E06.3 Autoimmune thyroiditis; M80.08XD Age-related osteoporosis with current pathological fracture, vertebra(e), subsequent encounter for fracture with routine healing; R03.0 Elevated blood-pressure reading, without diagnosis of hypertension; M25.512 Pain in left shoulder; M25.511 Pain in right shoulder; M79.605 Pain in left leg; R26.2 Difficulty in walking, not elsewhere classified; R62.7 Adult failure to thrive; J45.20 Mild intermittent asthma, uncomplicated; K21.9 Gastro-esophageal reflux disease without esophagitis; Z79.890 Hormone replacement therapy; Z79.899 Other long term (current) drug therapy; Z86.73 Personal history of transient ischemic attack (TIA), and cerebral infarction without residual deficits
CPT/HCPCS: 73564; 80048; 81001; 83735; 85025; 93971; 96372; 97110; 97116; 97162; 97166; 97530; 97535; 99221; 99284; A4216; G0378

== ENCOUNTER → 2025-04-25 | Outpatient (CLI) | payer MEDICARE, SELFPAY | END | disposition home or self-care (01) | PROVIDERS: PCP Family Medicine; Referring Provider Physician Assistant; Visit Provider Physician Assistant | DX: L40.0 Psoriasis vulgaris (principal) | CPT/HCPCS: 36415; 86480 ==